=== PATIENT | female | born 1990 | race Caucasian/White ===

== ENCOUNTER 2016-10-22 07:33 | Emergency (ER) | payer OTHER ==
[~2016-10-22] VITALS: Ht 175.3 cm; Wt 122.5 kg
[~2016-10-22 07:33] MED LIST: ACET500L36 PO; ACHD5005 PO; AGM875T PO; CEPH500C PO; CETI10TA17 PO; CIPR500T78 PO; CYCL10TA9 PO; FEXO180T84 PO; IBP800T PO; METR500T PO; MULT-974 PO; NAPR-243 PO; ONDAN4ODT PO; OXYC-12 PO; PHEN200T27 PO; POLY255P PO; SERT100T8 PO; SERT50TA PO; SRTR100T PO; TRAM50TA2 PO
[2016-10-22] MEDS ORDERED: PARO40TA3 PO (07:47)
[2016-10-22] MEDS ORDERED: ACET250T3 PO (07:47)
[2016-10-22] MEDS ORDERED: DEXAMETHASONE PF 10 MG/ML (DECADRON) VIAL IM STA (07:49)
[2016-10-22] MEDS ORDERED: diphenhydrAMINE 50 MG/ML INJ (BENADRYL) IM STA (07:49)
[2016-10-22] MEDS ORDERED: FAMOTIDINE 20 MG (PEPCID) TABLET PO STA (07:49)
--- NOTE | 2016-10-22 07:55 | ED General ---
General Chief Complaint: Allergic Reaction Stated Complaint: POSS ALLERGIC REACTION/RASH Source of Information: Patient Exam Limitations: No Limitations History of Present Illness Time Seen by Provider: 07:37 Initial Comments Here with report of possible allergic reaction. States that she started a new med, pantoprazole, 2 days ago and has had nothing else new except for she did eat an egg roll from somewhere last night. Symptoms started after eating the egg roll and that included nausea and vomiting with some persistent abdominal cramping. Redness and itching noted to hands, arms, scalp and to a lesser extent the torso. Denies breathing problems. Denies weakness. Timing/Duration: 12 Hours Severity: Moderate Associated Systoms: No Diaphoresis, No Fever/Chills, Nausea/Vomiting, Rash, No Shortness of Air Allergies and Home Medications Allergies Coded Allergies: pantoprazole (Verified Allergy, Unknown, 10/22/16) Home Medications Acetazolamide 250 Mg Tablet, 500 MG PO BID, (Reported) Fexofenadine HCl 180 Mg Tablet, 180 MG PO DAILY, (Reported) Paroxetine HCl 40 Mg Tablet, 40 MG PO, (Reported) Sertraline HCl 100 Mg Tablet, 200 MG PO DAILY, #180 (Reported) Constitutional: see HPI, No chills, No diaphoresis, No fever EENTM: no symptoms reported, No throat pain, No throat swelling Respiratory: no symptoms reported Cardiovascular: no symptoms reported Gastrointestinal: see HPI, nausea, vomiting Genitourinary: no symptoms reported Musculoskeletal: no symptoms reported Skin: see HPI, pruritus, rash Psychiatric/Neurological: No Symptoms Reported All Other Systems Reviewed Negative Unless Noted: Yes Past Cadivxy-Hcxvdj-Saojug Hx Patient Social History Alcohol Use: Denies Use Recreational Drug Use: No Smoking Status: Never a Smoker Recent Foreign Travel: No Contact w/Someone Who Travel: No Recent Hopitalizations: No Immunizations Up To Date Tetanus Booster (TDap): Less than 5yrs Surgeries HX Surgeries: Yes Surgeries: Gallbladder Respiratory Hx Respiratory Disorders: No Cardiovascular Hx Cardiac Disorders: No Neurological Hx Neurological Disorders: Yes Reproductive System Hx Reproductive Disorders: No Sexually Transmitted Disease: No HIV/AIDS: No Genitourinary Hx Genitourinary Disorders: No Gastrointestinal Hx Gastrointestinal Disorders: Yes Gastrointestinal Disorders: Gall Bladder Disease Musculoskeletal Hx Musculoskeletal Disorders: Yes Musculoskeletal Disorders: Fractures Endocrine Hx Endocrine Disorders: No HEENT HX ENT Disorders: No Cancer Hx Cancer: No Psychosocial Hx Psychiatric Problems: Yes Behavioral Health Disorders: Anxiety Integumentary HX Skin/Integumentary Disorder: No Reviewed Nursing Assessment Reviewed/Agree w Nursing PMH: Yes Family Medical History Significant Family History: No Pertinent Family Hx Physical Exam Vital Signs Vital Sign - Last 12Hours 10/22/16 07:49 Temp 99.1 Pulse 103 Resp 20 B/P (MAP) 141/90 Pulse Ox 96 Capillary Refill : General Appearance: No Apparent Distress, WD/WN HEENT: PERRL/EOMI, Pharynx Normal Neck: Non Tender, Supple Respiratory: Lungs Clear, Normal Breath Sounds Cardiovascular: Regular Rate, Rhythm, No Murmur Gastrointestinal: Non Tender, Soft Back: Normal Inspection, No CVA Tenderness, No Vertebral Tenderness Extremity: Non Tender, No Calf Tenderness Neurologic/Psychiatric: Alert, Oriented x3 Skin: Warm/Dry, Rash (erythema noted to hands and distal arms as well as upper neck and scalp. No significant rash noted on torso.) Progress/Results/Core Measures Results/Orders My Orders Orders - BARBIE LANGE MD Diphenhydramine Injection (Benadryl Inje (10/22/16 07:49) Dexamethasone Pf Injection (Decadron Pf (10/22/16 07:49) Famotidine Tablet (Pepcid Tablet) (10/22/16 07:49) Epinephrine 1 Mg Injection (Adrenalin I (10/22/16 08:26) Saline Lock/Iv-Start (10/22/16 08:26) Ns Iv 1000 Ml (Sodium Chloride 0.9%) (10/22/16 08:26) Epinephrine 1 Mg Injection (Adrenalin I (10/22/16 08:27) Medications Given in ED Current Medications Medications Dose Ordered Sig/Divya Route Start Time Stop Time Status Last Admin Dose Admin Sodium Chloride 1,000 ml @ 0 mls/hr Q0M ONCE IV 10/22/16 08:26 10/22/16 08:29 DC 10/22/16 08:44 0 MLS/HR Vital Signs/I&O Vital Sign - Last 12Hours 10/22/16 07:49 Temp 99.1 Pulse 103 Resp 20 B/P (MAP) 141/90 Pulse Ox 96 Progress Note : Progress Note Seen and evaluated. Benadryl 50 mg IM, Decadron 10 mg IM and Pepcid 20 mg by mouth ordered. We will try conservative approach initially. 0825: Patient noted to have increasing rash and itching so we will establish IV and give 1 L normal saline as well as give epinephrine 0.3 mg IM. Monitor patient. 1225: Symptoms have completely resolved and she is doing much better. Discharged home with return precautions. Patient verbalize understanding instructions and agreement with plan. Departure Impression Impression: Primary Impression: Drug-induced anaphylaxis Qualified Codes: T78.2XXA - Anaphylactic shock, unspecified, initial encounter Departure-Patient Inst. Decision time for Depature: 12:27 Referrals: NO,LOCAL PHYSICIAN (PCP/Family) Primary Care Physician Patient Instructions: Anaphylaxis (DC) Add. Discharge Instructions: All discharge instructions reviewed with patient and/or family. Voiced understanding. Take Pepcid or the generic famotidine 20 mg twice daily for the next 3 days and then daily thereafter as needed. You may take Benadryl 25-50 mg every 6 hours as needed for itching. Follow-up with your Dr. in a few days for recheck. Do not take the pantoprazole anymore as this is the likely cause of your allergic reaction. Return for worse pain, fever, vomiting, weakness, breathing problems or other concerns as needed. BARBIE LANGE MD Oct 22, 2016 07:55
[2016-10-22] MEDS ORDERED: NS IV 1000 ML 1,000 ML IV ONE (08:26)
[2016-10-22] MEDS ORDERED: EPINEPHrine INJECTION 1 MG/ML AMP IM STA (08:26)
[2016-10-22] MEDS ORDERED: EPINEPHrine INJECTION 1 MG/ML AMP ONE (08:27)
[2016-10-22 12:48] VITALS: BP 124/85
--- OUTSIDE RECORDS SUMMARY | 2016-11-22 20:51 | XMS REPORT ---
Author Author CHANTALE OCAMPO [facility] eClinicalWorks Address Unknown Phone Unavailable Care Team Providers Care Hvac Designer Name Role Phone CHANTALE OCAMPO CP Unavailable Allergies, Adverse Reactions, Alerts Substance Reaction Event Type N.K.D.A. Info Not Available Non Drug Allergy Problems Problem Type Condition Code Onset Dates Condition Status Assessment Acute serous otitis media of left ear, recurrence not specified H65.02 Active Medications Medication Code System Code Instructions Start Date End Date Status Dosage Amoxicillin [facility] [address]-31 500 MG Orally every 12 hrs Aug 30, 2015 Sep 06, 2015 1 tablet Zoloft [facility] [address]-21 100 MG Orally 2 times a day 1 tablet Procedures Procedure Coding System Code Date Office Visit, Est Pt., Level 3 CPT-4 74153 Aug 30, 2015 Vital Signs Date/Time: Aug 30, 2015 Temperature 98.4 F Weight 245.2 lbs Height 69 in BMI 36.21 Index Blood Pressure Diastolic 70 mmHg Blood Pressure Systolic 110 mmHg Cardiac Monitoring Heart Rate 80 bpm Results No Known Results Summary Purpose eClinicalWorks Submission
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
== END 2016-10-22 12:48 | disposition home or self-care (01) ==
LOC: EDUNIT# 07:33 → ER 07:35
DX: T88.6XXA Anaphylactic reaction due to adverse effect of correct drug or medicament properly administered, initial encounter (principal); T47.1X5A Adverse effect of other antacids and anti-gastric-secretion drugs, initial encounter; Y92.009 Unspecified place in unspecified non-institutional (private) residence as the place of occurrence of the external cause
CPT/HCPCS: 96372

== ENCOUNTER 2016-12-20 22:23 | Emergency (ER) | payer OTHER ==
[~2016-12-20] VITALS: Ht 175.3 cm; Wt 120.2 kg
[~2016-12-20 22:23] MED LIST changes: +ACET250T3 PO; +PARO40TA3 PO
[2016-12-21] MEDS ORDERED: KETOROLAC 30 MG/ML VIAL IVP STA (01:23)
[2016-12-21] MEDS ORDERED: NS IV 1000 ML 1,000 ML IV ONE (01:23)
[2016-12-21] MEDS ORDERED: CLINDAMYCIN INJECTION 900 MG in NS (IVPB) 50 ML IV ONE (01:30)
[2016-12-21 01:33] LABS: BASOPHILS % (AUTO) 0 % (0-10); EOSINOPHILS # (AUTO) 0.1 10^3/uL (0.0-0.3); EOSINOPHILS % (AUTO) 1 % (0-10); LYMPHOCYTES # (AUTO) 2.2 X 10^3 (1.0-4.0); LYMPHOCYTES % (AUTO) 15 % (12-44); MEAN CORPUSCULAR HEMOGLOBIN 29 PG (25-34); MEAN CORPUSCULAR HGB CONC 32 G/DL (32-36); MEAN CORPUSCULAR VOLUME 90 FL (80-99); MEAN PLATELET VOLUME 11.3 FL (7.4-10.4); MONOCYTES # (AUTO) 0.8 X 10^3 (0.0-1.0); MONOCYTES % (AUTO) 6 % (0-12); NEUTROPHILS # (AUTO) 11.6 X 10^3 (1.8-7.8); NEUTROPHILS % (AUTO) 79 % (42-75); PLATELET COUNT 336 10^3/uL (130-400); RED BLOOD COUNT 4.85 10^6/uL (4.35-5.85); RED CELL DISTRIBUTION WIDTH 13.8 % (10.0-14.5); WHITE BLOOD COUNT 14.8 10^3/uL (4.3-11.0)
[2016-12-21 01:49] LABS: ALANINE AMINOTRANSFERASE 23 U/L (0-55); ALBUMIN 4.3 G/DL (3.2-4.5); ANION GAP 12 MMOL/L (5-14); ASPARTATE AMINO TRANSFERASE 16 U/L (5-34); BILIRUBIN,TOTAL 0.3 MG/DL (0.1-1.0); BLOOD UREA NITROGEN 9 MG/DL (7-18); BUN/CREATININE RATIO 12; CALCIUM 9.6 MG/DL (8.5-10.1); CARBON DIOXIDE 20 MMOL/L (21-32); CHLORIDE 110 MMOL/L (98-107); CREATININE SERUM 0.76 MG/DL (0.60-1.30); GFR ESTIMATED > 60; GLUCOSE 111 MG/DL (70-105); POTASSIUM 3.7 MMOL/L (3.6-5.0); SODIUM 142 MMOL/L (135-145); TOTAL PROTEIN 7.7 G/DL (6.4-8.2)
--- NOTE | 2016-12-21 02:23 | ED Upper Extremity ---
General Chief Complaint: Upper Extremity Stated Complaint: POSS SPIDER BITE Nursing Triage Note: Pt. has what she believes to be a spider bite to her left forarm. Nursing Sepsis Screen: No Definite Risk Allergies and Home Medications Allergies Coded Allergies: pantoprazole (Verified Allergy, Unknown, 10/22/16) Home Medications Acetazolamide 250 Mg Tablet, 500 MG PO BID, (Reported) Fexofenadine HCl 180 Mg Tablet, 180 MG PO DAILY, (Reported) Paroxetine HCl 40 Mg Tablet, 40 MG PO, (Reported) Sertraline HCl 100 Mg Tablet, 200 MG PO DAILY, #180 (Reported) Past Ztpwqhx-Aepdri-Mnhvem Hx Patient Social History Alcohol Use: Denies Use Recreational Drug Use: No Smoking Status: Never a Smoker Recent Foreign Travel: No Contact w/Someone Who Travel: No Recent Infectious Disease Expo: No Recent Hopitalizations: No Immunizations Up To Date Tetanus Booster (TDap): Less than 5yrs Surgeries HX Surgeries: Yes Surgeries: Gallbladder Respiratory Hx Respiratory Disorders: No Cardiovascular Hx Cardiac Disorders: No Neurological Hx Neurological Disorders: Yes Reproductive System Hx Reproductive Disorders: No Sexually Transmitted Disease: No HIV/AIDS: No Genitourinary Hx Genitourinary Disorders: No Gastrointestinal Hx Gastrointestinal Disorders: Yes Gastrointestinal Disorders: Gall Bladder Disease Musculoskeletal Hx Musculoskeletal Disorders: Yes Musculoskeletal Disorders: Fractures Endocrine Hx Endocrine Disorders: No HEENT HX ENT Disorders: No Cancer Hx Cancer: No Psychosocial Hx Psychiatric Problems: Yes Behavioral Health Disorders: Anxiety Integumentary HX Skin/Integumentary Disorder: No Family Medical History Significant Family History: No Pertinent Family Hx Physical Exam Vital Signs Vital Sign - Last 12Hours 12/20/16 22:25 Temp 97.9 Pulse 85 Resp 14 B/P (MAP) 148/76 Pulse Ox 98 O2 Delivery Room Air Capillary Refill : Less Than 3 Seconds Progress/Results/Core Measures Results/Orders Lab Results Laboratory Tests Test 12/21/16 00:30 Range/Units White Blood Count 14.8 H 4.3-11.0 10^3/uL Red Blood Count 4.85 4.35-5.85 10^6/uL Hemoglobin 13.8 11.5-16.0 G/DL Hematocrit 44 35-52 % Mean Corpuscular Volume 90 80-99 FL Mean Corpuscular Hemoglobin 29 25-34 PG Mean Corpuscular Hemoglobin Concent 32 32-36 G/DL Red Cell Distribution Width 13.8 10.0-14.5 % Platelet Count 336 130-400 10^3/uL Mean Platelet Volume 11.3 H 7.4-10.4 FL Neutrophils (%) (Auto) 79 H 42-75 % Lymphocytes (%) (Auto) 15 12-44 % Monocytes (%) (Auto) 6 0-12 % Eosinophils (%) (Auto) 1 0-10 % Basophils (%) (Auto) 0 0-10 % Neutrophils # (Auto) 11.6 H 1.8-7.8 X 10^3 Lymphocytes # (Auto) 2.2 1.0-4.0 X 10^3 Monocytes # (Auto) 0.8 0.0-1.0 X 10^3 Eosinophils # (Auto) 0.1 0.0-0.3 10^3/uL Basophils # (Auto) 0.0 0.0-0.1 10^3/uL Sodium Level 142 135-145 MMOL/L Potassium Level 3.7 3.6-5.0 MMOL/L Chloride Level 110 H 98-107 MMOL/L Carbon Dioxide Level 20 L 21-32 MMOL/L Anion Gap 12 5-14 MMOL/L Blood Urea Nitrogen 9 7-18 MG/DL Creatinine 0.76 0.60-1.30 MG/DL Estimat Glomerular Filtration Rate > 60 BUN/Creatinine Ratio 12 Glucose Level 111 H 70-105 MG/DL Calcium Level 9.6 8.5-10.1 MG/DL Total Bilirubin 0.3 0.1-1.0 MG/DL Aspartate Amino Transf (AST/SGOT) 16 5-34 U/L Alanine Aminotransferase (ALT/SGPT) 23 0-55 U/L Alkaline Phosphatase 67 40-136 U/L Total Protein 7.7 6.4-8.2 G/DL Albumin 4.3 3.2-4.5 G/DL My Orders Orders - TRANG CASTELAN Cbc With Automated Diff (12/21/16 01:23) Comprehensive Metabolic Panel (12/21/16 01:23) Ketorolac Injection (Toradol Injection) (12/21/16 01:23) Ns Iv 1000 Ml (Sodium Chloride 0.9%) (12/21/16 01:23) Clindamycin Injection (Cleocin Injection (12/21/16 01:30) Medications Given in ED Current Medications Medications Dose Ordered Sig/Divya Route Start Time Stop Time Status Last Admin Dose Admin Clindamycin Phosphate 900 mg/ Sodium Chloride 56 ml @ 100 mls/hr ONCE ONCE IV 12/21/16 01:30 12/21/16 02:03 DC 12/21/16 01:32 100 MLS/HR Sodium Chloride 1,000 ml @ 0 mls/hr Q0M ONCE IV 12/21/16 01:23 12/21/16 01:26 DC 12/21/16 01:31 0 MLS/HR Vital Signs/I&O Vital Sign - Last 12Hours 12/20/16 22:25 Temp 97.9 Pulse 85 Resp 14 B/P (MAP) 148/76 Pulse Ox 98 O2 Delivery Room Air Blood Pressure Mean: 100 Departure Impression Impression: Primary Impression: Cellulitis of forearm, left Disposition: HOME, SELF-CARE Condition: Improved Departure-Patient Inst. Decision time for Depature: 02:16 Referrals: NO,LOCAL PHYSICIAN (PCP/Family) Primary Care Physician Patient Instructions: Cellulitis (Skin Infection), Adult (DC) Add. Discharge Instructions: All discharge instructions reviewed with patient and/or family. Voiced understanding. Medications as directed. Tylenol over the counter as directed for pain. Motrin 800 mg by mouth every 8 hours as needed for pain. Ice packs or heating pads as needed for 20 minute intervals. Elevate the arm on pillows. Shower with antibacterial soap. Follow-up with your family practitioner for recheck. Return to the emergency department for worsened pain, redness, fever, drainage, or any other concerns. Work/School Note: [employer] TRANG CASTELAN Dec 21, 2016 02:23
[2016-12-21] MEDS ORDERED: HYDR-3812 PO (02:29)
[2016-12-21] MEDS ORDERED: CLIN300C11 PO (02:29)
[2016-12-21 02:48] VITALS: BP 103/67
== END 2016-12-21 02:48 | disposition home or self-care (01) ==
LOC: EDUNIT# 22:23 → ER 22:26
DX: L03.114 Cellulitis of left upper limb (principal)
CPT/HCPCS: 36415; 80053; 85025

== ENCOUNTER 2017-01-21 21:27 | Emergency (ER) | payer OTHER ==
[~2017-01-21] VITALS: Ht 175.3 cm; Wt 119.3 kg
[~2017-01-21 21:27] MED LIST changes: +CLIN300C11 PO; +HYDR-3812 PO
[2017-01-21] MEDS ORDERED: RANI150T15 PO (21:54)
[2017-01-21] MEDS ORDERED: TRIM/SULFAMETH 160/800 (SEPTRA DS) TAB PO ONE (22:30)
[2017-01-21] MEDS ORDERED: SULF1TAB35 PO (22:32)
--- NOTE | 2017-01-21 22:32 | ED Integumentary General ---
General Chief Complaint: Bite-Animal/Human/Insect Stated Complaint: SPIDER BITE ON FACE Nursing Triage Note: to ED with reports of possible insect bite to left cheek. Patient reports that she first noticed it this morning. Denies any other s/s. History of Present Illness Time seen by provider: 22:10 Initial Comments Evaluation for possible insect bite or abscess to the left cheek. Patient states she has had MRSA in the past Timing/Duration: this morning Severity: mild Location: face Possible Cause: no cause identified, insect bite (possible, the patient does report that she has seen spiders in her home.) Associated Symptoms: denies symptoms Allergies and Home Medications Allergies Coded Allergies: pantoprazole (Verified Allergy, Unknown, 10/22/16) Home Medications Acetazolamide 250 Mg Tablet, 500 MG PO BID, (Reported) Paroxetine HCl 40 Mg Tablet, 40 MG PO, (Reported) Ranitidine HCl 150 Mg Tablet, 150 MG PO BID, (Reported) Sulfamethoxazole/Trimethoprim 1 Each Tablet, 1 EACH PO Q12H, #14 Ref 0 Prescribed by: GINI LOZANO on 01/21/172231 Constitutional: no symptoms reported, see HPI EENTM: no symptoms reported, see HPI Respiratory: no symptoms reported, see HPI Cardiovascular: no symptoms reported, see HPI Gastrointestinal: no symptoms reported, see HPI Genitourinary: no symptoms reported, see HPI Musculoskeletal: no symptoms reported, see HPI Skin: see HPI, other (small abscess to left cheek) Psychiatric/Neurological: No Symptoms Reported, See HPI Endocrine: No Symptoms Reported, See HPI Hematologic/Lymphatic: No Symptoms Reported, See HPI All Other Systems Reviewed Negative Unless Noted: Yes Past Bbcjybz-Udvmfo-Swsxyx Hx Patient Social History Alcohol Use: Denies Use Recreational Drug Use: No Smoking Status: Never a Smoker 2nd Hand Smoke Exposure: No Recent Foreign Travel: No Contact w/Someone Who Travel: No Recent Infectious Disease Expo: No Recent Hopitalizations: No Immunizations Up To Date Tetanus Booster (TDap): Less than 5yrs Seasonal Allergies Seasonal Allergies: Yes Surgeries HX Surgeries: Yes Surgeries: Gallbladder Respiratory Hx Respiratory Disorders: No Cardiovascular Hx Cardiac Disorders: No Neurological Hx Neurological Disorders: Yes Reproductive System Hx Reproductive Disorders: No Sexually Transmitted Disease: No HIV/AIDS: No Genitourinary Hx Genitourinary Disorders: No Gastrointestinal Hx Gastrointestinal Disorders: Yes Gastrointestinal Disorders: Gall Bladder Disease Musculoskeletal Hx Musculoskeletal Disorders: Yes Musculoskeletal Disorders: Fractures Endocrine Hx Endocrine Disorders: No HEENT HX ENT Disorders: No Cancer Hx Cancer: No Psychosocial Hx Psychiatric Problems: Yes Behavioral Health Disorders: Anxiety Integumentary HX Skin/Integumentary Disorder: No Reviewed Nursing Assessment Reviewed/Agree w Nursing PMH: Yes Family Medical History Significant Family History: No Pertinent Family Hx Physical Exam Vital Signs Vital Sign - Last 12Hours 01/21/17 21:49 Temp 98.5 Pulse 84 Resp 16 B/P (MAP) 122/52 Pulse Ox 98 O2 Delivery Room Air Capillary Refill : Less Than 3 Seconds General Appearance: WD/WN, no apparent distress Neck: non-tender, full range of motion, supple, normal inspection, No lymphadenopathy (R), No lymphadenopathy (L) Cardiovascular: normal peripheral pulses, regular rate, rhythm Respiratory: chest non-tender, lungs clear Gastrointestinal: normal bowel sounds, non tender, soft Neurologic/Psychiatric: no motor/sensory deficits, alert, normal mood/affect, oriented x 3 Skin: normal color, warm/dry, other (small indurated area to left cheek trace erythema, moderate tenderness, no warmth. No discharge or fluctuance. ) Skin Problem Character: abscess Lymphatic: no adenopathy Progress/Results/Core Measures Results/Orders My Orders Orders - GINI LOZANO Sulfamethoxazole/Trimet Ds Tab (Bactrim (01/21/17 22:30) Medications Given in ED Current Medications Medications Dose Ordered Sig/Divya Route Start Time Stop Time Status Last Admin Dose Admin Trimethoprim/ Sulfamethoxazole 1 ea ONCE ONCE PO 01/21/17 22:30 01/21/17 22:31 DC 01/21/17 22:37 1 EA Vital Signs/I&O Vital Sign - Last 12Hours 01/21/17 01/21/17 21:49 22:37 Temp 98.5 98.5 Pulse 84 81 Resp 16 16 B/P (MAP) 122/52 Pulse Ox 98 100 O2 Delivery Room Air Room Air Blood Pressure Mean: 75 Departure Impression Impression: Primary Impression: Insect bite Qualified Codes: W57.XXXA - Bitten or stung by nonvenomous insect and other nonvenomous arthropods, initial encounter Additional Impression: Abscess Disposition: 01 HOME, SELF-CARE Condition: Stable Departure-Patient Inst. Referrals: [facility] (PCP/Family) Primary Care Physician Patient Instructions: Insect Bites and Stings (DC) Add. Discharge Instructions: Ice to left cheek 20 minutes every 2 hours. Take antibiotic as prescribed. Clean site with peroxide 3-4 times a day. Return to emergency dept. for fevers, increased pain, or new concerns. All discharge instructions reviewed with patient and/or family. Voiced understanding. Scripts Sulfamethoxazole/Trimethoprim (Bactrim Ds Tablet) 1 Each Tablet 1 EACH PO Q12H, #14 TAB 0 Refills Prov: GINI LOZANO 01/21/17 GINI LOZANO Jan 21, 2017 22:32
[2017-01-21 22:37] VITALS: BP 126/58
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
== END 2017-01-21 22:37 | disposition home or self-care (01) ==
LOC: EDUNIT# 21:27 → ER 21:29
DX: S00.86XA Insect bite (nonvenomous) of other part of head, initial encounter (principal); L02.01 Cutaneous abscess of face; F41.9 Anxiety disorder, unspecified; Z86.14 Personal history of Methicillin resistant Staphylococcus aureus infection; W57.XXXA Bitten or stung by nonvenomous insect and other nonvenomous arthropods, initial encounter
CPT/HCPCS: 99283

== ENCOUNTER 2017-04-05 11:16 | Emergency (ER) | payer OTHER ==
[~2017-04-05] VITALS: Ht 175.3 cm; Wt 119.3 kg
[~2017-04-05 11:16] MED LIST changes: +RANI150T15 PO; +SULF1TAB35 PO
[2017-04-05] MEDS ORDERED: FLUV100T3 PO (11:48)
--- NOTE | 2017-04-05 12:21 | ED GU-Female ---
General Chief Complaint: -Female Stated Complaint: LOWER BACK PAIN Nursing Triage Note: PT STATES LOW RT BACK PAIN WITH FREQUENT URINATION FOR ABOUT 3 DAYS. PT ALSO STATES CHILLS AND SWEATS OFF AND ON. Nursing Sepsis Screen: No Definite Risk Source: patient Exam Limitations: no limitations History of Present Illness Time seen by provider: 12:20 Initial Comments To ER with reports of right-sided low back pain for about 3 days. She has associated nausea. She denies any dysuria or urinary frequency. She states the pain is worsened by certain movements and improved by certain movements. Timing/Duration: other Severity/Quality: moderate Radiation: none Activities at Onset: none Prior Genitourinary Problems: none Associated Symptoms: dysuria, lower back pain, nausea/vomiting Allergies and Home Medications Allergies Coded Allergies: pantoprazole (Verified Allergy, Unknown, 10/22/16) Home Medications Acetazolamide 250 Mg Tablet, 500 MG PO BID, (Reported) Cyclobenzaprine HCl 5 Mg Tablet, 5 MG PO TID PRN for PAIN-MODERATE TO SEVERE, # 20 Prescribed by: ARIC ZHANG on 04/05/17 1349 Fluvoxamine Maleate 100 Mg Tablet, 100 MG PO DAILY, (Reported) Naproxen 500 Mg Tablet, 500 MG PO BID PRN for PAIN-MODERATE TO SEVERE, #30 Prescribed by: ARIC ZHANG on 04/05/17 1349 Paroxetine HCl 40 Mg Tablet, 40 MG PO, (Reported) Ranitidine HCl 150 Mg Tablet, 150 MG PO BID, (Reported) Constitutional: see HPI EENTM: see HPI Respiratory: no symptoms reported Cardiovascular: no symptoms reported Genitourinary: see HPI Musculoskeletal: no symptoms reported Skin: no symptoms reported Psychiatric/Neurological: No Symptoms Reported Endocrine: No Symptoms Reported Past Whurreg-Aqdjtg-Obpuqi Hx Patient Social History Alcohol Use: Denies Use Recreational Drug Use: No Smoking Status: Never a Smoker 2nd Hand Smoke Exposure: No Recent Foreign Travel: No Contact w/Someone Who Travel: No Recent Infectious Disease Expo: No Recent Hopitalizations: No Immunizations Up To Date Tetanus Booster (TDap): Less than 5yrs Seasonal Allergies Seasonal Allergies: Yes Surgeries History of Surgeries: Yes (DENTAL) Surgeries: Gallbladder Respiratory History of Respiratory Disorde: No Cardiovascular History of Cardiac Disorders: No 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) Reproductive System : No Last Menstrual Period: Apr 05, 2017 Hx Reproductive Disorders: No Sexually Transmitted Disease: No HIV/AIDS: No Genitourinary History of Genitourinary Disor: No (CURRENT CONDITION 04/05/17) Gastrointestinal History of Gastrointestinal Di: Yes Gastrointestinal Disorders: Gall Bladder Disease Musculoskeletal History of Musculoskeletal Dis: Yes Musculoskeletal Disorders: Fractures Endocrine History of Endocrine Disorders: No Cancer History of Cancer: No Psychosocial History of Psychiatric Problem: Yes (OCD) Behavioral Health Disorders: Anxiety Integumentary History of Skin or Integumenta: No Blood Transfusions History of Blood Disorders: No Family Medical History Significant Family History: No Pertinent Family Hx Physical Exam Vital Signs Vital Sign - Last 12Hours 04/05/17 11:40 Temp 96.5 Pulse 88 Resp 22 B/P (MAP) 124/85 Pulse Ox 98 O2 Delivery Room Air Capillary Refill : Less Than 3 Seconds General Appearance: WD/WN, no apparent distress HEENT: PERRL/EOMI, normal ENT inspection Neck: non-tender, full range of motion Cardiovascular: regular rate, rhythm, no murmur Respiratory: normal breath sounds, no respiratory distress, no accessory muscle use Gastrointestinal: normal bowel sounds, non tender, soft Extremities: normal range of motion, non-tender Neurologic/Psychiatric: alert, normal mood/affect, oriented x 3 Skin: normal color, warm/dry Progress/Results/Core Measures Results/Orders Lab Results Laboratory Tests Test 04/05/17 12:20 04/05/17 12:30 Range/Units Urine Color YELLOW Urine Clarity CLEAR Urine pH 5 5-9 Urine Specific [place] 1.020 1.016-1.022 Urine Protein 1+ H NEGATIVE Urine Glucose (UA) NEGATIVE NEGATIVE Urine Ketones NEGATIVE NEGATIVE Urine Nitrite NEGATIVE NEGATIVE Urine Bilirubin NEGATIVE NEGATIVE Urine Urobilinogen NORMAL NORMAL MG/DL Urine Leukocyte Esterase NEGATIVE NEGATIVE Urine RBC (Auto) 4+ H NEGATIVE Urine RBC 2-5 H /HPF Urine WBC NONE /HPF Urine Squamous Epithelial Cells 2-5 /HPF Urine Crystals NONE /LPF Urine Bacteria TRACE /HPF Urine Casts NONE /LPF Urine Mucus NEGATIVE /LPF Urine Culture Indicated NO White Blood Count 9.6 4.3-11.0 10^3/uL Red Blood Count 4.57 4.35-5.85 10^6/uL Hemoglobin 13.4 11.5-16.0 G/DL Hematocrit 41 35-52 % Mean Corpuscular Volume 89 80-99 FL Mean Corpuscular Hemoglobin 29 25-34 PG Mean Corpuscular Hemoglobin Concent 33 32-36 G/DL Red Cell Distribution Width 13.7 10.0-14.5 % Platelet Count 309 130-400 10^3/uL Mean Platelet Volume 10.3 7.4-10.4 FL Neutrophils (%) (Auto) 67 42-75 % Lymphocytes (%) (Auto) 26 12-44 % Monocytes (%) (Auto) 5 0-12 % Eosinophils (%) (Auto) 2 0-10 % Basophils (%) (Auto) 0 0-10 % Neutrophils # (Auto) 6.4 1.8-7.8 X 10^3 Lymphocytes # (Auto) 2.5 1.0-4.0 X 10^3 Monocytes # (Auto) 0.5 0.0-1.0 X 10^3 Eosinophils # (Auto) 0.2 0.0-0.3 10^3/uL Basophils # (Auto) 0.0 0.0-0.1 10^3/uL My Orders Orders - ARIC ZHANG APRN Ua Culture If Indicated (04/05/17 11:40) Urine Bedside (04/05/17 11:40) Ondansetron Oral Dissolve Tab (Zofran (04/05/17 12:30) Cbc With Automated Diff (04/05/17 12:25) Saline Lock/Iv-Start (04/05/17 12:26) Ketorolac Injection (Toradol Injection) (04/05/17 12:30) Ct Abd/Pelvis Wo(Kidney Stone) (04/05/17 13:09) Medications Given in ED Current Medications Medications Dose Ordered Sig/Divya Route Start Time Stop Time Status Last Admin Dose Admin Ketorolac Tromethamine 30 mg ONCE ONCE IVP 04/05/17 12:30 04/05/17 12:31 DC 04/05/17 12:38 30 MG Ondansetron HCl 4 mg ONCE ONCE PO 04/05/17 12:30 04/05/17 12:31 DC 04/05/17 12:28 4 MG Vital Signs/I&O Vital Sign - Last 12Hours 04/05/17 11:40 Temp 96.5 Pulse 88 Resp 22 B/P (MAP) 124/85 Pulse Ox 98 O2 Delivery Room Air Blood Pressure Mean: 98 Progress Note : Progress Note NAME: CARLIN QUINTERO [facility] REC#: [id number] PT STATUS: REG ER : 1990 PHYSICIAN: ARIC ZHANG APRN ADMIT DATE: 04/05/17/ER Draft Date of Exam:04/05/17 CT ABD/PELVIS WO(KIDNEY STONE) PROCEDURE: CT urinary tract, rule out kidney stone. TECHNIQUE: Multiple contiguous axial images were obtained through the abdomen and pelvis without the use of intravenous contrast. INDICATION: Severe right-sided back pain x4 days. COMPARISON: 03/27/2014. FINDINGS: Included views of the lung bases are clear. CT abdomen: Pyramids of the left kidney are somewhat hyperdense, but there is otherwise no evidence of nephrolithiasis on either side. No ureteral calculi identified. Additionally, there is no hydroureteronephrosis or other evidence of obstruction. There is small hypodensity within the superior pole of left kidney. This is incompletely characterized on this exam, but is suspicious for hypodense cysts. The liver, spleen, pancreas, and adrenal glands have an unremarkable noncontrast CT appearance. Small bowel loops are nondistended. Normal appendix is identified. There is no loculated fluid collection, free fluid, nor free air within the abdomen. No abnormal mesenteric or retroperitoneal adenopathy is seen. Bony structures show no acute abnormalities. CT pelvis: Urinary bladder is unopacified. No calculi are seen within urinary bladder. There is no loculated fluid collection, free fluid, nor free air within the pelvis. No abnormal lymph nodes are seen. Filling defect is noted within the vagina likely on the basis of indwelling tampon. Bony structures show no acute abnormalities. IMPRESSION: 1. No acute abnormalities within the abdomen or pelvis. Left renal pelvises are somewhat hyperdense, but this is nonspecific. There is otherwise no evidence of renal or renal collecting system calculi or obstruction on this noncontrast exam. 2. Other nonemergent findings as described above. Dictated on workstation # [id number] Dict: 04/05/17 1330 Trans: 04/05/17 1344 [facility] [id number] Interpreted by: LAURI HOLLEY MD Electronically signed by: Departure Impression Impression: Primary Impression: Musculoskeletal back pain Disposition: HOME, SELF-CARE Condition: Stable Departure-Patient Inst. Decision time for Depature: 13:48 Referrals: [facility] (PCP/Family) Primary Care Physician Patient Instructions: Low Back Pain in Adults Add. Discharge Instructions: 1. Medication as directed 2. Return to ER for any concerns 3. See your doctor later this week for recheck if pain persists All discharge instructions reviewed with patient and/or family. Voiced understanding. Scripts Naproxen (Naproxen) 500 Mg Tablet 500 MG PO BID Y for PAIN-MODERATE, #30 TAB Prov: ARIC ZHANG APRN 04/05/17 Cyclobenzaprine HCl (Cyclobenzaprine HCl) 5 Mg Tablet 5 MG PO TID Y for PAIN-MODERATE, #21 TAB Prov: ARIC ZHANG APRN 04/05/17 Cyclobenzaprine HCl (Cyclobenzaprine HCl) 5 Mg Tablet 5 MG PO TID Y for PAIN-MODERATE TO SEVERE, #20 TAB Prov: ARIC ZHANG APRN 04/05/17 Naproxen (Naprosyn) 500 Mg Tablet 500 MG PO BID Y for PAIN-MODERATE TO SEVERE, #30 TAB Prov: ARIC ZHANG APRN 04/05/17 Work/School Note: Work Release Form Date Seen in the Emergency Department: Apr 05, 2017 Return to Work: Apr 07, 2017 ARIC ZHANG APRN Apr 05, 2017 12:21
[2017-04-05] MEDS ORDERED: ONDANSETRON 4 MG (ZOFRAN) ORAL DISSOLVE TAB PO ONE (12:30)
[2017-04-05] MEDS ORDERED: KETOROLAC 30 MG/ML VIAL IVP ONE (12:30)
[2017-04-05 12:41] LABS: BASOPHILS % (AUTO) 0 % (0-10); EOSINOPHILS # (AUTO) 0.2 10^3/uL (0.0-0.3); EOSINOPHILS % (AUTO) 2 % (0-10); LYMPHOCYTES # (AUTO) 2.5 X 10^3 (1.0-4.0); LYMPHOCYTES % (AUTO) 26 % (12-44); MEAN CORPUSCULAR HEMOGLOBIN 29 PG (25-34); MEAN CORPUSCULAR HGB CONC 33 G/DL (32-36); MEAN CORPUSCULAR VOLUME 89 FL (80-99); MEAN PLATELET VOLUME 10.3 FL (7.4-10.4); MONOCYTES # (AUTO) 0.5 X 10^3 (0.0-1.0); MONOCYTES % (AUTO) 5 % (0-12); NEUTROPHILS # (AUTO) 6.4 X 10^3 (1.8-7.8); NEUTROPHILS % (AUTO) 67 % (42-75); PLATELET COUNT 309 10^3/uL (130-400); RED BLOOD COUNT 4.57 10^6/uL (4.35-5.85); RED CELL DISTRIBUTION WIDTH 13.7 % (10.0-14.5); WHITE BLOOD COUNT 9.6 10^3/uL (4.3-11.0)
[2017-04-05 12:56] LABS: BILIRUBIN,URINE NEGATIVE (NEGATIVE); KETONES,URINE NEGATIVE (NEGATIVE); LEUKOCYTE ESTERASE ,URINE NEGATIVE (NEGATIVE); NITRITE,URINE NEGATIVE (NEGATIVE); PH,URINE 5 (5-9); PROTEIN,URINE 1+ (NEGATIVE); UROBILINOGEN,URINE NORMAL (NORMAL)
--- NOTE | 2017-04-05 13:44 | Diagnostic Imaging Report ---
PROCEDURE: CT urinary tract, rule out kidney stone. TECHNIQUE: Multiple contiguous axial images were obtained through the abdomen and pelvis without the use of intravenous contrast. INDICATION: Severe right-sided back pain x4 days. COMPARISON: 03/27/2014. FINDINGS: Included views of the lung bases are clear. CT abdomen: Pyramids of the left kidney are somewhat hyperdense, but there is otherwise no evidence of nephrolithiasis on either side. No ureteral calculi identified. Additionally, there is no hydroureteronephrosis or other evidence of obstruction. There is small hypodensity within the superior pole of left kidney. This is incompletely characterized on this exam, but is suspicious for hypodense cysts. The liver, spleen, pancreas, and adrenal glands have an unremarkable noncontrast CT appearance. Small bowel loops are nondistended. Normal appendix is identified. There is no loculated fluid collection, free fluid, nor free air within the abdomen. No abnormal mesenteric or retroperitoneal adenopathy is seen. Bony structures show no acute abnormalities. CT pelvis: Urinary bladder is unopacified. No calculi are seen within urinary bladder. There is no loculated fluid collection, free fluid, nor free air within the pelvis. No abnormal lymph nodes are seen. Filling defect is noted within the vagina likely on the basis of indwelling tampon. Bony structures show no acute abnormalities. IMPRESSION: 1. No acute abnormalities within the abdomen or pelvis. Left renal pelvises are somewhat hyperdense, but this is nonspecific. There is otherwise no evidence of renal or renal collecting system calculi or obstruction on this noncontrast exam. 2. Other nonemergent findings as described above. Dictated by: Dictated on workstation # [id number]
[2017-04-05] MEDS ORDERED: CYCL5TAB PO ×2 (13:49→13:55)
[2017-04-05] MEDS ORDERED: NAPR500T PO (13:49)
[2017-04-05 13:55] VITALS: BP 124/85
[2017-04-05] MEDS ORDERED: NAPR500T3 PO (13:55)
== END 2017-04-05 13:55 | disposition home or self-care (01) ==
LOC: EDUNIT# 11:16 → ER 11:18
DX: M54.5 Low back pain (principal); F41.9 Anxiety disorder, unspecified; F42.9 Obsessive-compulsive disorder, unspecified; Z87.19 Personal history of other diseases of the digestive system
CPT/HCPCS: 36415; 74176; 81000; 84703; 85025

== ENCOUNTER 2021-04-30 19:08 | Emergency (ER) | payer OTHER ==
[~2021-04-30] VITALS: Ht 175 cm; Wt 127.0 kg
[~2021-04-30 19:08] MED LIST changes: -CLIN300C11 PO; +CLIN300C12 PO; +CYCL5TAB PO; +FLUV100T3 PO; -HYDR-3812 PO; +NAPR-1071 PO; +NAPR-915 PO; +RANI-613 PO; -RANI150T15 PO; +SERT-414 PO; -SULF1TAB35 PO; +SULF1TAB38 PO
[2021-04-30 19:41] LABS: BILIRUBIN,URINE NEGATIVE (NEGATIVE); CLARITY,URINE SL CLOUDY; COLOR,URINE YELLOW; GLUCOSE, URINE (UA) NEGATIVE (NEGATIVE); KETONES,URINE NEGATIVE (NEGATIVE); LEUKOCYTE ESTERASE ,URINE NEGATIVE (NEGATIVE); NITRITE,URINE NEGATIVE (NEGATIVE); PROTEIN,URINE NEGATIVE (NEGATIVE)
[2021-04-30 20:05] LABS: AMORPHOUS SEDIMENT,UR RARE AMOR URATES /LPF; AMPHETAMINE SCREEN, URINE NEGATIVE (NEGATIVE); BACTERIA,URINE NEGATIVE /HPF; BARBITURATE SCREEN URINE NEGATIVE (NEGATIVE); BENZODIAZEPINES SCREEN URINE NEGATIVE (NEGATIVE); CANNABINOID SCREEN, URINE NEGATIVE (NEGATIVE); COCAINE SCREEN URINE NEGATIVE (NEGATIVE); METHADONE STAT NEGATIVE (NEGATIVE); METHAMPHETAMINE SCREEN URINE S NEGATIVE (NEGATIVE); OPIATE SCREEN URINE NEGATIVE (NEGATIVE); OXYCODONE STAT NEGATIVE (NEGATIVE); TRICYCLIC ANTIDEPRESSANTS SCRE NEGATIVE (NEGATIVE)
[2021-04-30 20:06] LABS: PROPOXYPHENE STAT NEGATIVE (NEGATIVE)
--- NOTE | 2021-04-30 20:21 | ED Neck-Back Pain/Injury ---
General Chief Complaint: Back Problems Stated Complaint: NECK / BACK PAIN Nursing Triage Note: PT ARRIVES TO ER AMBULATORY WITH C/O LOW BACK PAIN, NECK STIFFNESS, AND TINGLY LEGS. 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 Source of Information: Patient History of Present Illness Date Seen by Provider: Apr 30, 2021 Time Seen by Provider: 19:20 Initial Comments PT ARRIVES VIA POV FROM HOME C/O MOSTLY LOWER BACK PAIN, BUT STATES HER WHOLE BACK HURTS PAIN IS MOSTLY OVER LEFT SI JOINT AREA, AND OCCASIONALLY RADIATES DOWN TO HER L EFT POSTERIOR THIGH ALSO C/O NECK PAIN NO RADIATION OF NECK PAIN/ NO ARM PAIN BUT THEN STATES SHE "JUST HURTS ALL OVER" THESE SYMPTOMS ONGOING SINCE FEBRUARY 16 HAD THERAPEUTIC LUMBAR PUNCTURE ON JANUARY 16 FOR PSEUDOTUMOR CEREBRI STATES THESE SYMPTOMS ACTUALLY STARTED THEN, BUT GOT BETTER AND THEN CAME BACK ON FEBRUARY 16 AND HAVE NOT GONE AWAY HAS NOT FOLLOWED UP WITH ANYONE FOR THIS PROBLEM STATES SHE HAS BEEN SEEN AT [facility] FOR URI / SINUS SYMPTOMS AND WAS ON AMOXIL AND AUGMENTIN--BUT HAS NOT BEEN SEEN FOR THIS PROBLEM NO FEVER NO PARESTHESIAS OR MOTOR DEFICITS NO VISION CHANGES NO LOSS OF BOWEL OR BLADDER FUNCTION HAS HAD A HEADACHE OFF AND ON,BUT SHE HAS OCCASIONAL HEADACHES STATES SHE OCCASIONALLY FEELS LIGHTHEADED WELL. PT STATES SHE IS JUST REALLY ANXIOUS ABOUT IT. HAS HISTORY OF ANXIETY AND OCD LMP ENDED 04/18/21. HAS IUD IN PLACE PT RECEIVED RAHEL/RAHEL COVID-19 VACCINE 10/2020 Other Comments PCP: [facility] Allergies and Home Medications Allergies Coded Allergies: pantoprazole (Verified Allergy, Unknown, 10/22/16) Patient Home Medication List Home Medication List Reviewed: Yes Acetazolamide (Acetazolamide) 250 Mg Tablet, 500 MG PO BID, (Reported) Entered as Reported by: ALYSA VILLAGOMEZ on 10/22/16 1711 Cyclobenzaprine HCl (Cyclobenzaprine HCl) 5 Mg Tablet, 5 MG PO TID PRN for PAIN- MODERATE TO SEVERE Prescribed by: ARIC ZHANG on 04/05/17 1349 Cyclobenzaprine HCl (Cyclobenzaprine HCl) 5 Mg Tablet, 5 MG PO TID PRN for PAIN- MODERATE Prescribed by: ARIC ZHANG on 04/05/17 1355 Fluvoxamine Maleate (Fluvoxamine Maleate) 100 Mg Tablet, 100 MG PO DAILY, (Reported) Entered as Reported by: KEVAN BOWENS on 04/05/17 1148 Methylprednisolone (Methylprednisolone Dose Pack) 4 Mg Tab.ds.pk, 4 MG PO UD Prescribed by: YAMEL HAN on 04/30/212131 Naproxen (Naprosyn) 500 Mg Tablet, 500 MG PO BID PRN for PAIN-MODERATE TO SEVERE Prescribed by: ARIC ZHANG on 04/05/17 1349 Naproxen (Naproxen) 500 Mg Tablet, 500 MG PO BID PRN for PAIN-MODERATE Prescribed by: ARIC ZHANG on 04/05/17 1355 Paroxetine HCl (Paroxetine HCl) 40 Mg Tablet, 40 MG PO, (Reported) Entered as Reported by: ALYSA VILLAGOMEZ on 10/22/16 0747 Ranitidine HCl (Zantac) 150 Mg Tablet, 150 MG PO BID, (Reported) Entered as Reported by: GOGO BOWENS on 01/21/172153 Tizanidine HCl (Zanaflex) 4 Mg Capsule, 4 MG PO TID Prescribed by: YAMEL HAN on 04/30/212131 Review of Systems Constitutional: see HPI; No chills, No diaphoresis; dizziness; No fever EENTM: no symptoms reported Respiratory: no symptoms reported Cardiovascular: no symptoms reported Gastrointestinal: no symptoms reported Genitourinary: no symptoms reported : No LMP: Apr 13, 2021 Control/STD Prophylaxis: IUD Musculoskeletal: see HPI, back pain, neck pain Skin: no symptoms reported; No rash Psychiatric/Neurological: See HPI, Headache; Denies Numbness, Denies Paresthesi a, Denies Seizure, Denies Tingling, Denies Tremors, Denies Weakness Past Vprscmr-Rhktzm-Cgrkim Hx Patient Social History Tobacco Use?: No Substance use?: No Alcohol Use?: No Pt feels they are or have been: No Immunizations Up To Date Tetanus Booster (TDap): Less than 5yrs Influenza Vaccine Up-to-Date: No; Not Current First/Initial COVID19 Vaccinat: OCTOBER 2020 COVID19 Vaccine Performance Analyst: [email or web address] Seasonal Allergies Seasonal Allergies: Yes Past Medical History Surgery/Hospitalization HX: CHOLECYSTECTOMY 03/2014 Surgeries: Yes (DENTAL) Gallbladder Respiratory: No Cardiac: No Neurological: Yes (PSEUDOTUMOR CEREBRI) Reproductive Disorders: 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 Sexually Transmitted Disease: No HIV/AIDS: No Genitourinary: No Gastrointestinal: Yes (S/P CHOLECYSTECTOMY) Gastroesophageal Reflux, Gall Bladder Disease Musculoskeletal: Yes Fractures Endocrine: Yes (OBESITY) HEENT: No Cancer: No Psychosocial: Yes (OCD) Anxiety Integumentary: Yes (MRSA) Blood Disorders: No Family Medical History No Pertinent Family Hx Physical Exam Vital Signs Vital Signs - First Documented 04/30/21 19:21 Temp 36.2 Pulse 111 Resp 18 B/P (MAP) 139/115 (123) Pulse Ox 96 O2 Delivery Room Air Capillary Refill : Less Than 3 Seconds Height, Weight, BMI Height: 5'9.00" Weight: 263lbs. oz. 119.865685ic; 41.00 BMI Method:Stated General Appearance: WD/WN, Anxious, Obese Neck: Full Range of Motion, Supple, Other (MILD DIFFUSE POSTERIOR NECK TENDERNESS, BUT HAS FULL ROM) Cardiovascular: Regular Rate, Rhythm, No Edema, No Murmur, Normal Peripheral Pulses Respiratory: Normal Breath Sounds, No Accessory Muscle Use Gastrointestinal: Non Tender, Soft Back: No CVA Tenderness, Other (STATES HER WHOLE BACK HURTS, BUT ONLY HAS MILD TENDERNESS ON PALPATION OF LOWER LUMBAR AREA, AND BILATERAL SI JOINTS--LEFT > RIGHT. HOLDING LEFT SI JOINT AREA. + STRAIGHT LEG RAISING AT LESS THAN 30 DEGREES ON LEFT. PT DOES HAVE FULL ROM, AND GOOD AND EQUAL STRENGTH IN ALL 4 EXTREMITIES. DTR'S +2/4 IN ALL EXTREMITIES. PT WALKS WITHOUT DIFFIUCULTY. ) Extremity: Normal Capillary Refill, Normal Inspection, Normal Range of Motion, Non Tender, No Calf Tenderness, No Pedal Edema Neurologic/Psychiatric: Alert, Oriented x3, No Motor/Sensory Deficits, artificial limb maker II- XII Norm as Tested, Other (ANXIOUS) Skin: Normal Color, Warm/Dry; No Ecchymosis, No Rash; Tattoos/Piercings Progress/Results/Core Measures Results/Orders Lab Results Laboratory Tests Test 04/30/21 19:30 04/30/21 20:24 Range/Units Urine Color YELLOW Urine Clarity SL CLOUDY Urine pH 6.0 5-[address] 1.020 1.016-1.022 Urine Protein NEGATIVE NEGATIVE Urine Glucose (UA) NEGATIVE NEGATIVE Urine Ketones NEGATIVE NEGATIVE Urine Nitrite NEGATIVE NEGATIVE Urine Bilirubin NEGATIVE NEGATIVE Urine Urobilinogen 0.2 < = 1.0 MG/DL Urine Leukocyte Esterase NEGATIVE NEGATIVE Urine RBC (Auto) NEGATIVE NEGATIVE Urine RBC NONE /HPF Urine WBC NONE /HPF Urine Crystals PRESENT H /LPF Urine Amorphous Sediment RARE RACHEL URATES H /LPF Urine Bacteria NEGATIVE /HPF Urine Casts NONE /LPF Urine Mucus SMALL H /LPF Urine Culture Indicated NO Urine Opiates Screen NEGATIVE NEGATIVE Urine Oxycodone Screen NEGATIVE NEGATIVE Urine Methadone Screen NEGATIVE NEGATIVE Urine Propoxyphene Screen NEGATIVE NEGATIVE Urine Barbiturates Screen NEGATIVE NEGATIVE Ur Tricyclic Antidepressants Screen NEGATIVE NEGATIVE Urine Phencyclidine Screen NEGATIVE NEGATIVE Urine Amphetamines Screen NEGATIVE NEGATIVE Urine Methamphetamines Screen NEGATIVE NEGATIVE Urine Benzodiazepines Screen NEGATIVE NEGATIVE Urine Cocaine Screen NEGATIVE NEGATIVE Urine Cannabinoids Screen NEGATIVE NEGATIVE White Blood Count 9.7 4.3-11.0 10^3/uL Red Blood Count 4.55 3.80-5.11 10^6/uL Hemoglobin 13.1 11.5-16.0 g/dL Hematocrit 41 35-52 % Mean Corpuscular Volume 89 80-99 fL Mean Corpuscular Hemoglobin 29 25-34 pg Mean Corpuscular Hemoglobin Concent 32 32-36 g/dL Red Cell Distribution Width 13.0 10.0-14.5 % Platelet Count 324 130-400 10^3/uL Mean Platelet Volume 10.5 9.0-12.2 fL Immature Granulocyte % (Auto) 0 % Neutrophils (%) (Auto) 81 H 42-75 % Lymphocytes (%) (Auto) 13 12-44 % Monocytes (%) (Auto) 6 0-12 % Eosinophils (%) (Auto) 1 0-10 % Basophils (%) (Auto) 0 0-10 % Neutrophils # (Auto) 7.8 1.8-7.8 10^3/uL Lymphocytes # (Auto) 1.2 1.0-4.0 10^3/uL Monocytes # (Auto) 0.5 0.0-1.0 10^3/uL Eosinophils # (Auto) 0.1 0.0-0.3 10^3/uL Basophils # (Auto) 0.0 0.0-0.1 10^3/uL Immature Granulocyte # (Auto) 0.0 0.0-0.1 10^3/uL Erythrocyte Sedimentation Rate 11 0-20 MM/HR Sodium Level 137 135-145 MMOL/L Potassium Level 3.7 3.6-5.0 MMOL/L Chloride Level 106 98-107 MMOL/L Carbon Dioxide Level 18 L 21-32 MMOL/L Anion Gap 13 5-14 MMOL/L Blood Urea Nitrogen 8 7-18 MG/DL Creatinine 0.70 0.60-1.30 MG/DL Estimat Glomerular Filtration Rate 98 BUN/Creatinine Ratio 11 Glucose Level 100 70-105 MG/DL Calcium Level 9.4 8.5-10.1 MG/DL Corrected Calcium 9.2 8.5-10.1 MG/DL Magnesium Level 1.6 1.6-2.4 MG/DL Total Bilirubin 0.3 0.1-1.0 MG/DL Aspartate Amino Transf (AST/SGOT) 29 5-34 U/L Alanine Aminotransferase (ALT/SGPT) 47 0-55 U/L Alkaline Phosphatase 63 40-136 U/L Myoglobin 47.4 10.0-92.0 NG/ML C-Reactive Protein High Sensitivity 3.01 H 0.00-0.50 MG/DL Total Protein 7.4 6.4-8.2 GM/DL Albumin 4.2 3.2-4.5 GM/DL TSH [place] Testing 0.92 0.35-4.94 UIU/ML Serum Test, Qualitative NEGATIVE NEGATIVE My Orders Orders - YAMEL HAN DO Ed Iv/Invasive Line Start (04/30/21 19:26) Cbc With Automated Diff (04/30/21 19:) Comprehensive Metabolic Panel (04/30/21 19:26) Hs C Reactive Protein (04/30/21 19:) Drug Screen Stat (Urine) (04/30/21 19:) Hcg,Qualitative Serum (04/30/21:) Magnesium (04/30/21 19:) Thyroid Analyzer (04/30/21 19:26) Ua Culture If Indicated (04/30/21:) Erythrocyte Sedimentation Rate (04/30/21:) Myoglobin Serum (04/30/21 19:) Ct Head/Cervical Spine Wo (04/30/21 20:16) Ct Thoracic/Lumbar Spine Wo (04/30/21 20:16) Ketorolac Injection (Toradol Injection) (04/30/21 20:30) Orphenadrine Inj (Ed Only) (Norflex Inje (04/30/21 20:30) Diphenhydramine Injection (Benadryl Inje (04/30/21 20:30) Rx-Cyclobenzaprine Tablet (Rx-Flexeril T (04/30/21 21:33) Medications Given in ED Current Medications Medications Dose Ordered Sig/Divya Route Start Time Stop Time Status Last Admin Dose Admin Ketorolac Tromethamine 30 mg ONCE ONCE IVP 04/30/21 20:30 04/30/21 20:31 DC 04/30/21 20:28 30 MG Orphenadrine Citrate 60 mg ONCE ONCE IVP 04/30/21 20:30 04/30/21 20:31 DC 04/30/21 21:38 60 MG Vital Signs/I&O 04/30/21 04/30/21 19:21 21:55 Temp 36.2 36.2 Pulse 111 105 Resp 18 18 B/P (MAP) 139/115 (123) 110/95 Pulse Ox 96 96 O2 Delivery Room Air Room Air Blood Pressure Mean: 123 Progress Progress Note : Progress Note GIVEN NORFLEX AND TORADOL NO DETERIORATION IN PT'S CONDITION DURING ER STAY Diagnostic Imaging Comments CT HEAD/CERVICAL SPINE--PER RADIOLOGIST REPORT AT 2106 FINDINGS: The ventricles and sulci are within normal limits. There is no hydrocephalus or cerebral edema. There is no midline shift or mass effect. There is no intracranial mass, hemorrhage or extra-axial fluid collection. The visualized paranasal sinuses and mastoid air cells are clear. No fractures are identified. CERVICAL SPINE: Alignment is normal. There is no fracture or traumatic subluxation. The prevertebral soft tissues are within normal limits. The odontoid is intact and the lateral masses are well aligned. There are no soft tissue abnormalities. IMPRESSION: 1. No acute intracranial process. 2. No focal abnormality in the cervical spine. CT THORACIC/LUMBAR SPINE--PER RADIOLOGIST REPORT AT 2106 FINDINGS: The alignment of the thoracic and lumbar spine is normal. There are mild degenerative changes in the thoracic spine. The vertebral body heights are well-maintained. There is no fracture or traumatic subluxation. There is no spondylolysis or spondylolisthesis. Visualized lungs are clear. Soft tissue structures are unremarkable. IMPRESSION: Mild thoracic spondylosis, however no acute fracture or traumatic subluxation in the thoracic or lumbar spine. Reviewed: Reviewed by Me Departure Impression Primary Impression: NECK AND BACK PAIN Disposition: HOME, SELF-CARE Condition: Stable Departure-Patient Inst. Decision time for Depature: 21:30 Referrals: [facility] (PCP/Family) Primary Care Physician Patient Instructions: Generalized Neck Pain (DC), Low Back Pain (DC) Add. Discharge Instructions: MOIST HEAT TO NECK AND BACK AT 20 MINUTE INTERVALS NO LIFTING OVER 10 LBS. NO TWISTING OR BENDING AT WAIST FOLLOW UP WITH THE MEDICAL CENTER THIS WEEK FOR FURTHER CARE All discharge instructions reviewed with patient and/or family. Voiced understanding. Scripts Methylprednisolone (Methylprednisolone Dose Pack) 4 Mg Tab.ds.pk 4 MG PO UD for 6 Days, #21 PKG PER DOSE PACK INSTRUCTIONS Prov: YAMEL HAN DO 04/30/21 Tizanidine HCl (Zanaflex) 4 Mg Capsule 4 MG PO TID for Spasms, #15 CAP Prov: YAMEL HAN DO 04/30/21 YAMEL HAN DO Apr 30, 2021 20:21
[2021-04-30] MEDS ORDERED: diphenhydrAMINE 50 MG/ML INJ (BENADRYL) IVP ONE (20:30)
[2021-04-30] MEDS ORDERED: KETOROLAC 30 MG/ML VIAL IVP ONE (20:30)
[2021-04-30] MEDS: ORPHENADRINE 60 MG/2 ML (NORFLEX) AMP (ED ONLY) IVP ONE ×2 (20:32→21:38)
[2021-04-30 20:45] LABS: BASOPHILS % (AUTO) 0 % (0-10); EOSINOPHILS # (AUTO) 0.1 10^3/uL (0.0-0.3); EOSINOPHILS % (AUTO) 1 % (0-10); HEMATOCRIT 41 % (35-52); HEMOGLOBIN 13.1 g/dL (11.5-16.0); LYMPHOCYTES # (AUTO) 1.2 10^3/uL (1.0-4.0); LYMPHOCYTES % (AUTO) 13 % (12-44); MEAN CORPUSCULAR HEMOGLOBIN 29 pg (25-34); MEAN CORPUSCULAR HGB CONC 32 g/dL (32-36); MEAN CORPUSCULAR VOLUME 89 fL (80-99); MEAN PLATELET VOLUME 10.5 fL (9.0-12.2); MONOCYTES # (AUTO) 0.5 10^3/uL (0.0-1.0); MONOCYTES % (AUTO) 6 % (0-12); NEUTROPHILS # (AUTO) 7.8 10^3/uL (1.8-7.8); NEUTROPHILS % (AUTO) 81 % (42-75); PLATELET COUNT 324 10^3/uL (130-400); WHITE BLOOD COUNT 9.7 10^3/uL (4.3-11.0)
--- NOTE | 2021-04-30 20:53 | Diagnostic Imaging Report ---
PROCEDURE: CT head and CT cervical spine without contrast. TECHNIQUE: Multiple contiguous axial images were obtained through the brain and cervical spine without the use of intravenous contrast. Sagittal and coronal reformations through the cervical spine were then performed. Auto Exposure Controls were utilized during the CT exam to meet ALARA standards for radiation dose reduction. INDICATION: Head and neck pain after trauma. FINDINGS: The ventricles and sulci are within normal limits. There is no hydrocephalus or cerebral edema. There is no midline shift or mass effect. There is no intracranial mass, hemorrhage or extra-axial fluid collection. The visualized paranasal sinuses and mastoid air cells are clear. No fractures are identified. CERVICAL SPINE: Alignment is normal. There is no fracture or traumatic subluxation. The prevertebral soft tissues are within normal limits. The odontoid is intact and the lateral masses are well aligned. There are no soft tissue abnormalities. IMPRESSION: 1. No acute intracranial process. 2. No focal abnormality in the cervical spine. Dictated by: Dictated on workstation # [id number]
--- NOTE | 2021-04-30 20:57 | Diagnostic Imaging Report ---
PROCEDURE: CT thoracic and lumbar spine without contrast. TECHNIQUE: Multiple contiguous axial images were obtained through the thoracic and lumbar spine without the use of intravenous contrast. Sagittal and coronal reformations were then performed. All CT scans use one or more of the following dose optimizing techniques: automated exposure control, MA and/or KvP adjustment based on a patient size and exam type, or iterative reconstruction. INDICATION: Back pain after trauma. FINDINGS: The alignment of the thoracic and lumbar spine is normal. There are mild degenerative changes in the thoracic spine. The vertebral body heights are well-maintained. There is no fracture or traumatic subluxation. There is no spondylolysis or spondylolisthesis. Visualized lungs are clear. Soft tissue structures are unremarkable. IMPRESSION: Mild thoracic spondylosis, however no acute fracture or traumatic subluxation in the thoracic or lumbar spine. Dictated by: Dictated on workstation # [id number]
[2021-04-30 21:21] LABS: ALBUMIN 4.2 GM/DL (3.2-4.5); BILIRUBIN,TOTAL 0.3 MG/DL (0.1-1.0); CALCIUM 9.4 MG/DL (8.5-10.1); CREATININE SERUM 0.7 MG/DL (0.60-1.30); MAGNESIUM 1.6 MG/DL (1.6-2.4); POTASSIUM 3.7 MMOL/L (3.6-5.0); TOTAL PROTEIN 7.4 GM/DL (6.4-8.2); TSH (THYROID ANALYZER) 0.92 UIU/ML (0.35-4.94)
[2021-04-30 21:23] LABS: ERYTHROCYTE SEDIMENTATION RATE 11 MM/HR (0-20)
[2021-04-30] MEDS ORDERED: METH4TAB10 PO (21:32)
[2021-04-30] MEDS ORDERED: TIZA4CAP PO (21:32)
[2021-04-30] MEDS ORDERED: RX-CYCLOBENZAPRINE 10 MG (FLEXERIL) TAB PPK#3 PO STA (21:33)
[2021-04-30 21:55] VITALS: BP 110/95
== END 2021-04-30 21:55 | disposition home or self-care (01) ==
LOC: EDUNIT# 19:08 → ER 19:11
DX: M54.2 Cervicalgia (principal); M54.50 Low back pain, unspecified; K21.9 Gastro-esophageal reflux disease without esophagitis; F41.9 Anxiety disorder, unspecified; E66.9 Obesity, unspecified; Z68.41 Body mass index [BMI] 40.0-44.9, adult; Z86.14 Personal history of Methicillin resistant Staphylococcus aureus infection; Z79.899 Other long term (current) drug therapy
CPT/HCPCS: 36415; 70450; 72125; 72128; 72131; 80053; 80306; 81000; 83735; 83874; 84443; 84703; 85025; 85652; 86141

== ENCOUNTER 2022-07-17 08:34 | Emergency (ER) | payer OTHER ==
[~2022-07-17] VITALS: Ht 175 cm; Wt 130.0 kg
[~2022-07-17 08:34] MED LIST changes: +CLIN-144 PO; -CLIN300C12 PO; +FLUV100T21 PO; -FLUV100T3 PO; +METH4TAB10 PO; +TIZA4CAP PO
[2022-07-17] MEDS ORDERED: [UNRECOGNIZED DRUG - CODE] (08:56)
[2022-07-17] MEDS ORDERED: NORG1TAB33 (08:56)
[2022-07-17] MEDS ORDERED: TOPI50TA13 (08:56)
[2022-07-17] MEDS ORDERED: CETI10CA PO (08:56)
[2022-07-17] MEDS ORDERED: fentaNYL INJ 100 MCG/2 ML AMP IVP STA (09:40)
[2022-07-17] MEDS ORDERED: KETOROLAC 30 MG/ML VIAL IVP STA (09:40)
[2022-07-17] MEDS ORDERED: NS IV 1000 ML 1,000 ML IV STA (09:40)
--- NOTE | 2022-07-17 09:43 | ED Abdominal Pain ---
General Chief Complaint: Abdominal/GI Problems Stated Complaint: ABD & BACK PAIN Nursing Triage Note: PT AMB TO RM 7 PT CO OF LOWER ABD SEVERE STARTED AT APPROX 0330.PT STATES HAS HAD SOME PAIN FOR A FEW YEARS, STATES TODAY IS DIFFERENT PT DOES HAVE HX OF OVARIAN CYST. PT CO OF LOWER PAIN IN ABD AND BACK 04/27. PT CO OF NAUSEA. PT CO OF CONSTIPATION. LAST BM 07/16/22. LMP STATES LAST MONTH. PT STATES HURTS TO HAVE SEX. Source of Information: Patient Exam Limitations: No Limitations History of Present Illness Date Seen by Provider: Jul 17, 2022 Time Seen by Provider: 09:31 Initial Comments Here with lower abdominal pain that started very early this morning and kept her awake. She has had intermittent pain for the last few years. States the pain is lower and radiates around to her back on both sides. She has been following with her log getter for this because she has had multiple ovarian cysts. She states this feels a little different than the cyst. She does report vaginal discharge but states it is fairly normal and denies bleeding currently. She does have pain with sexual intercourse. This is also not new. She does not believe that she is but states that she could be. She has had ultrasound done previously but not CT. She did have a Pap smear recently that was negative for dysplasia or cancer. Previous testing for infection has also been negative per the patient. Reports that she has been a little constipated this week but did have a bowel movement yesterday. Denies dysuria. Timing/Duration: 12 Hours Severity/Quality: Moderate, Aching Location: Suprapubic Radiation: RLQ, LLQ, Back, Other ("Feels like a tire around her waist") Associated Symptoms: Back Pain; No Chest Pain, No Fever/Chills, No Nausea/Vomiting, No Weakness Allergies and Home Medications Allergies Coded Allergies: pantoprazole (Verified Allergy, Unknown, 10/22/16) Patient Home Medication List Home Medication List Reviewed: Yes Cetirizine HCl (Zyrtec) 10 Mg Capsule, 10 MG PO DAILY, (Reported) Entered as Reported by: KHLOE MCCARTHY on 07/17/22 0856 Last Action: New Order Fluvoxamine Maleate (Fluvoxamine Maleate ER) 100 Mg Cap.er.24h, 200 MG DAILY, (Reported) Entered as Reported by: KHLOE MCCARTHY on 07/17/22855 Last Action: New Order Norgestrel-Ethinyl Estradiol (Kxe-Sjgilsyb-71 Tablet) 0.3 Mg-30 Mcg Tablet, (Reported) Entered as Reported by: KHLOE MCCARTHY on 07/17/22855 Last Action: New Order Topiramate (Topiramate) 50 Mg Tablet, (Reported) Entered as Reported by: KHLOE MCCARTHY on 07/17/22855 Last Action: New Order Discontinued Medications Acetazolamide (Acetazolamide) 250 Mg Tablet, 500 MG PO BID, (Reported) Discontinued Reason: No Longer Taking Entered as Reported by: ALYSA VILLAGOMEZ on 10/22/16 7147 Last Action: Discontinued Cyclobenzaprine HCl (Cyclobenzaprine HCl) 5 Mg Tablet, 5 MG PO TID PRN for PAIN- MODERATE TO SEVERE Discontinued Reason: No Longer Taking Prescribed by: ARIC ZHANG on 04/05/179 Last Action: Discontinued Cyclobenzaprine HCl (Cyclobenzaprine HCl) 5 Mg Tablet, 5 MG PO TID PRN for PAIN-MODERATE Discontinued Reason: No Longer Taking Prescribed by: ARIC ZHANG on 04/05/17 765 Last Action: Discontinued Fluvoxamine Maleate (Fluvoxamine Maleate) 100 Mg Tablet, 100 MG PO DAILY, (Reported) Discontinued Reason: No Longer Taking Entered as Reported by: KEVAN BOWENS on 04/05/17 1148 Last Action: Discontinued Methylprednisolone (Methylprednisolone Dose Pack) 4 Mg Tab.ds.pk, 4 MG PO UD Discontinued Reason: No Longer Taking Prescribed by: YAMEL HAN on 04/30/212131 Last Action: Discontinued Naproxen (Naprosyn) 500 Mg Tablet, 500 MG PO BID PRN for PAIN-MODERATE TO SEVERE Discontinued Reason: No Longer Taking Prescribed by: ARIC ZHANG on 04/05/17 134 Last Action: Discontinued Naproxen (Naproxen) 500 Mg Tablet, 500 MG PO BID PRN for PAIN-MODERATE Discontinued Reason: No Longer Taking Prescribed by: ARIC ZHANG on 04/05/17 1355 Last Action: Discontinued Paroxetine HCl (Paroxetine HCl) 40 Mg Tablet, 40 MG PO, (Reported) Discontinued Reason: No Longer Taking Entered as Reported by: ALYSA VILLAGOMEZ on 10/22/16 2912 Last Action: Discontinued Ranitidine HCl (Zantac) 150 Mg Tablet, 150 MG PO BID, (Reported) Discontinued Reason: No Longer Taking Entered as Reported by: GOGO BOWENS on 01/21/172153 Last Action: Discontinued Tizanidine HCl (Zanaflex) 4 Mg Capsule, 4 MG PO TID Discontinued Reason: No Longer Taking Prescribed by: YAMEL HAN on 04/30/212131 Last Action: Discontinued Review of Systems Review of Systems Constitutional: see HPI; No chills, No fever EENTM: No Nose Congestion, No Throat Pain Respiratory: Denies Cough, Denies Shortness of Air Cardiovascular: Denies Chest Pain, Denies Edema Gastrointestinal: Abdominal Pain, Constipated Genitourinary: Discharge Musculoskeletal: back pain; No muscle pain Skin: no symptoms reported All Other Systems Reviewed Negative Unless Noted: Yes Past Ywqfwcl-Ppdudt-Jaotiu Hx Patient Social History Tobacco Use?: No Substance use?: No Alcohol Use?: No Immunizations Up To Date Tetanus Booster (TDap): Less than 5yrs First/Initial COVID19 Vaccinat: OCTOBER 2020 Second COVID19 Vaccination Axel: OCTOBER 2020 Third COVID19 Vaccination Date: OCTOBER 2020 Seasonal Allergies Seasonal Allergies: Yes Past Medical History Surgery/Hospitalization HX: CHOLECYSTECTOMY 03/2014, DENTAL Surgeries: Yes (DENTAL) Gallbladder Respiratory: No Cardiac: No Neurological: Yes (PSEUDOTUMOR CEREBRI) Last Menstrual Period: Jun 20, 2022 Reproductive Disorders: No PROCESSING SUPERVISOR History: IUD Sexually Transmitted Disease: No HIV/AIDS: No Genitourinary: No Gastrointestinal: Yes (S/P CHOLECYSTECTOMY) Gastroesophageal Reflux, Gall Bladder Disease Musculoskeletal: Yes Fractures Endocrine: Yes (OBESITY) HEENT: No Cancer: No Psychosocial: Yes (OCD) Anxiety Integumentary: Yes (MRSA) Blood Disorders: No Family Medical History Reviewed Nursing Family Hx No Pertinent Family Hx Physical Exam Vital Signs Vital Signs - First Documented 07/17/22 08:40 Temp 35.6 Pulse 83 Resp 18 B/P (MAP) 143/92 (109) Pulse Ox 97 Capillary Refill : Less Than 3 Seconds Height/Weight/BMI Height: 5'9.00" Weight: 263lbs. oz. [id number]; 42.00 BMI Method:Stated General Appearance: WD/WN, no apparent distress HEENT: PERRL/EOMI, pharynx normal Neck: full range of motion, supple Respiratory: lungs clear, normal breath sounds Cardiovascular: regular rate, rhythm, no murmur Peripheral Pulses: 2+ Dorsalis Pedis (R), 2+ Left Dors-Pedis (L), 2+ Radial Pulses (R), 2+ Radial Pulses (L) Gastrointestinal: soft; No guarding, No rebound; tenderness (Suprapubic) Extremities: non-tender, normal inspection Back: normal inspection, no CVA tenderness, no vertebral tenderness Neurologic/Psychiatric: alert, oriented x 3 Skin: normal color, warm/dry Progress/Results/Core Measures Results/Orders Lab Results Laboratory Tests Test 07/17/22 09:00 07/17/22 09:05 Range/Units White Blood Count 7.1 4.3-11.0 10^3/uL Red Blood Count 4.67 3.80-5.11 10^6/uL Hemoglobin 13.3 11.5-16.0 g/dL Hematocrit 41 35-52 % Mean Corpuscular Volume 89 80-99 fL Mean Corpuscular Hemoglobin 29 25-34 pg Mean Corpuscular Hemoglobin Concent 32 32-36 g/dL Red Cell Distribution Width 13.1 10.0-14.5 % Platelet Count 385 130-400 10^3/uL Mean Platelet Volume 10.0 9.0-12.2 fL Immature Granulocyte % (Auto) 0 % Neutrophils (%) (Auto) 65 42-75 % Lymphocytes (%) (Auto) 29 12-44 % Monocytes (%) (Auto) 4 0-12 % Eosinophils (%) (Auto) 1 0-10 % Basophils (%) (Auto) 0 0-10 % Neutrophils # (Auto) 4.6 1.8-7.8 10^3/uL Lymphocytes # (Auto) 2.1 1.0-4.0 10^3/uL Monocytes # (Auto) 0.3 0.0-1.0 10^3/uL Eosinophils # (Auto) 0.1 0.0-0.3 10^3/uL Basophils # (Auto) 0.0 0.0-0.1 10^3/uL Immature Granulocyte # (Auto) 0.0 0.0-0.1 10^3/uL Urine Color YELLOW Urine Clarity CLEAR Urine pH 6.0 5-9 Urine Specific [place] 1.025 H 1.016-1.022 Urine Protein NEGATIVE NEGATIVE Urine Glucose (UA) NEGATIVE NEGATIVE Urine Ketones NEGATIVE NEGATIVE Urine Nitrite NEGATIVE NEGATIVE Urine Bilirubin NEGATIVE NEGATIVE Urine Urobilinogen 0.2 < = 1.0 MG/DL Urine Leukocyte Esterase NEGATIVE NEGATIVE Urine RBC (Auto) NEGATIVE NEGATIVE Urine RBC NONE /HPF Urine WBC RARE /HPF Urine Squamous Epithelial Cells 2-5 /HPF Urine Crystals NONE /LPF Urine Bacteria FEW H /HPF Urine Casts NONE /LPF Urine Mucus NEGATIVE /LPF Urine Culture Indicated NO Sodium Level 139 135-145 MMOL/L Potassium Level 4.1 3.6-5.0 MMOL/L Chloride Level 107 98-107 MMOL/L Carbon Dioxide Level 20 L 21-32 MMOL/L Anion Gap 12 5-14 MMOL/L Blood Urea Nitrogen 11 7-18 MG/DL Creatinine 0.76 0.60-1.30 MG/DL Estimat Glomerular Filtration Rate 107 BUN/Creatinine Ratio 14 Glucose Level 129 H 70-105 MG/DL Calcium Level 9.4 8.5-10.1 MG/DL Corrected Calcium 9.3 8.5-10.1 MG/DL Total Bilirubin 0.3 0.1-1.0 MG/DL Aspartate Amino Transf (AST/SGOT) 17 5-34 U/L Alanine Aminotransferase (ALT/SGPT) 20 0-55 U/L Alkaline Phosphatase 45 40-136 U/L C-Reactive Protein High Sensitivity 1.85 H 0.00-0.50 MG/DL Total Protein 7.8 6.4-8.2 GM/DL Albumin 4.1 3.2-4.5 GM/DL Urine Test NEGATIVE NEGATIVE Micro Results Microbiology 07/17/22 Wet Prep - Final, Complete My Orders Orders - BARBIE LANGE MD Ed Iv/Invasive Line Start (07/17/22 09:40) Urine Bedside (07/17/22 09:40) Cbc With Automated Diff (07/17/22 09:40) Comprehensive Metabolic Panel (07/17/22 09:40) Hs C Reactive Protein (07/17/22 09:40) Ua Culture If Indicated (07/17/22 09:40) Fentanyl Inj (Sublimaze Injection) (07/17/22 09:40) Ketorolac Injection (Toradol Injection) (07/17/22 09:40) Ns Iv 1000 Ml (Sodium Chloride 0.9%) (07/17/22 09:40) Ct Abdomen/Pelvis W (07/17/22 09:40) Wet Prep (07/17/22 09:42) Iohexol Injection (Omnipaque 350 Mg/Ml 1 (07/17/22 10:00) Received Contrast (Hold Metformin- Contr (07/17/22 10:00) Ns (Ivpb) (Sodium Chloride 0.9% Ivpb Bag (07/17/22 10:00) Hcg,Qualitative Urine (07/17/22 10:32) Fentanyl Inj (Sublimaze Injection) (07/17/22 11:30) Medications Given in ED Current Medications Medications Dose Ordered Sig/Divya Route Start Time Stop Time Status Last Admin Dose Admin Fentanyl Citrate 50 mcg ONCE ONCE IVP 07/17/22 11:30 07/17/22 11:31 DC 07/17/22 11:25 50 MCG Iohexol 100 ml ONCE ONCE IV 07/17/22 10:00 07/17/22 10:01 DC 07/17/22 11:08 100 ML Sodium Chloride 100 ml ONCE ONCE IV 07/17/22 10:00 07/17/22 10:01 DC 07/17/22 11:08 80 ML Vital Signs/I&O 07/17/22 08:40 Temp 35.6 Pulse 83 Resp 18 B/P (MAP) 143/92 (109) Pulse Ox 97 Blood Pressure Mean: 109 Progress Progress Note : Progress Note Seen and evaluated. IV, labs including CBC, CMP and UA ordered. We will get wet prep. We will go ahead and get CT abdomen pelvis to rule out intra- abdominal pathology including mass, appendicitis, abscess or other abnormal pathology. Normal saline 1 L bolus ordered. Fentanyl 50 mcg IV and Toradol 30 mg IV ordered. Monitor patient. 1203: Patient is clear did not show any acute findings. Wet prep does show clue cells and I believe this is likely the cause of her pain. Chemistries and CBC were normal. No significant findings on UA. We will initiate outpatient treatment for bacterial vaginosis with Flagyl 500 mg p.o. twice daily. This was discussed with the patient including side effects. Discharged home with return precaution. Patient verbalized understanding instructions and agreement with plan. Diagnostic Imaging Diagonstic Imaging: CT Plain Films/CT/US/NM/MRI: abdomen, pelvis Comments [facility]. [place], [place] NAME: CARLIN FELTON [facility] REC#: [id number] PT STATUS: REG ER : 1990 PHYSICIAN: BARBIE LANGE MD ADMIT DATE: 07/17/22/ER Draft Date of Exam:07/17/22 CT ABDOMEN/PELVIS W PROCEDURE: CT abdomen and pelvis with contrast. TECHNIQUE: Multiple contiguous axial images were obtained through the abdomen and pelvis after administration of intravenous contrast. Auto Exposure Controls were utilized during the CT exam to meet ALARA standards for radiation dose reduction. All CT scans use one or more of the following dose optimizing techniques: automated exposure control, MA and/or KvP adjustment based on patient size and exam type or iterative reconstruction. INDICATION: Left lower quadrant pain, nausea and constipation. COMPARED with study 04/05/2017 A punctate calculus of 1 to 2 mm within a mid pole left renal calyx present. No solid or cystic renal mass. No hydronephrosis. No perinephric edema. No opaque ureteral stone. Bladder unremarkable. The uterus and adnexa unremarkable. There is an air-containing appendix without appendicitis. There is no diverticulitis. Gallbladder is surgically absent. No pathological ductal dilatation. Liver, spleen, adrenals and pancreas all unremarkable. The aorta is nonaneurysmal. There is no bowel obstruction. No ileus. No abnormal fecal loading. Tiny fatty umbilical hernia, chronic and noninflamed. IMPRESSION: Nonobstructing punctate left kidney stone. Nonacute appendix. Fatty umbilical hernia, chronic. Prior cholecystectomy without apparent complication. No obstructive features, inflammatory processes or acute abnormalities identified. Dictated on workstation # [id number] Dict: 07/17/22 1113 Trans: 07/17/22 1123 [facility] [id number] Interpreted by: JADIEL CURRAN Electronically signed by: Reviewed: Reviewed by Me Departure Impression Primary Impression: Bacterial vaginosis Additional Impression: Pelvic pain Disposition: 01 HOME, SELF-CARE Condition: Stable Departure-Patient Inst. Decision time for Depature: 12:05 Referrals: NO,LOCAL PHYSICIAN (PCP/Family) Primary Care Physician Patient Instructions: Bacterial Vaginosis ED, Pelvic Pain ED Add. Discharge Instructions: All discharge instructions reviewed with patient and/or family. Voiced understanding. Take medications as directed. Do not drink alcohol with the prescribed antibiotic as it will likely cause vomiting. Follow-up with your log getter for recheck and further evaluation. Return for worse pain, fever, vomiting, weakness, breathing problems or other concerns as needed. You may take ibuprofen 800 mg every 8 hours as needed for pain. You may also take Tylenol/acetaminophen 1000 mg every 8 hours as needed for pain. Scripts Metronidazole (Metronidazole) 500 Mg Tablet 500 MG PO BID, #14 TAB 0 Refills Prov: BARBIE LANGE MD 07/17/22 BARBIE LANGE MD Jul 17, 2022 09:43
[2022-07-17 09:48] LABS: BASOPHILS % (AUTO) 0 % (0-10); EOSINOPHILS # (AUTO) 0.1 10^3/uL (0.0-0.3); EOSINOPHILS % (AUTO) 1 % (0-10); HEMATOCRIT 41 % (35-52); HEMOGLOBIN 13.3 g/dL (11.5-16.0); LYMPHOCYTES # (AUTO) 2.1 10^3/uL (1.0-4.0); LYMPHOCYTES % (AUTO) 29 % (12-44); MEAN CORPUSCULAR HEMOGLOBIN 29 pg (25-34); MEAN CORPUSCULAR HGB CONC 32 g/dL (32-36); MEAN CORPUSCULAR VOLUME 89 fL (80-99); MONOCYTES # (AUTO) 0.3 10^3/uL (0.0-1.0); MONOCYTES % (AUTO) 4 % (0-12); NEUTROPHILS # (AUTO) 4.6 10^3/uL (1.8-7.8); NEUTROPHILS % (AUTO) 65 % (42-75); PLATELET COUNT 385 10^3/uL (130-400); WHITE BLOOD COUNT 7.1 10^3/uL (4.3-11.0)
[2022-07-17 09:50] LABS: ALBUMIN 4.1 GM/DL (3.2-4.5); POTASSIUM 4.1 MMOL/L (3.6-5.0)
[2022-07-17 09:52] LABS: CALCIUM 9.4 MG/DL (8.5-10.1)
[2022-07-17 09:53] LABS: TOTAL PROTEIN 7.8 GM/DL (6.4-8.2)
[2022-07-17 09:55] LABS: BILIRUBIN,TOTAL 0.3 MG/DL (0.1-1.0)
[2022-07-17 09:57] LABS: BILIRUBIN,URINE NEGATIVE (NEGATIVE); CLARITY,URINE CLEAR; COLOR,URINE YELLOW; CREATININE SERUM 0.76 MG/DL (0.60-1.30); GLUCOSE, URINE (UA) NEGATIVE (NEGATIVE); KETONES,URINE NEGATIVE (NEGATIVE); LEUKOCYTE ESTERASE ,URINE NEGATIVE (NEGATIVE); NITRITE,URINE NEGATIVE (NEGATIVE); PROTEIN,URINE NEGATIVE (NEGATIVE)
[2022-07-17] MEDS ORDERED: IOHEXOL 350 MG/ML 100 ML (OMNIPAQUE 350) VIAL IV ONE (10:00)
[2022-07-17] MEDS ORDERED: NS 100 ML (IVPB) BAG IV ONE (10:00)
[2022-07-17] MEDS ORDERED: HOLD METFORMIN - RECEIVED CONTRAST 20 ML VIAL IV SCH (10:00)
[2022-07-17 10:10] LABS: BACTERIA,URINE FEW /HPF; WBC,URINE RARE /HPF
--- NOTE | 2022-07-17 11:24 | Diagnostic Imaging Report ---
PROCEDURE: CT abdomen and pelvis with contrast. TECHNIQUE: Multiple contiguous axial images were obtained through the abdomen and pelvis after administration of intravenous contrast. Auto Exposure Controls were utilized during the CT exam to meet ALARA standards for radiation dose reduction. All CT scans use one or more of the following dose optimizing techniques: automated exposure control, MA and/or KvP adjustment based on patient size and exam type or iterative reconstruction. INDICATION: Left lower quadrant pain, nausea and constipation. COMPARED with study 04/05/2017 A punctate calculus of 1 to 2 mm within a mid pole left renal calyx present. No solid or cystic renal mass. No hydronephrosis. No perinephric edema. No opaque ureteral stone. Bladder unremarkable. The uterus and adnexa unremarkable. There is an air-containing appendix without appendicitis. There is no diverticulitis. Gallbladder is surgically absent. No pathological ductal dilatation. Liver, spleen, adrenals and pancreas all unremarkable. The aorta is nonaneurysmal. There is no bowel obstruction. No ileus. No abnormal fecal loading. Tiny fatty umbilical hernia, chronic and noninflamed. IMPRESSION: Nonobstructing punctate left kidney stone. Nonacute appendix. Fatty umbilical hernia, chronic. Prior cholecystectomy without apparent complication. No obstructive features, inflammatory processes or acute abnormalities identified. Dictated by: Dictated on workstation # [id number]
[2022-07-17] MEDS ORDERED: fentaNYL INJ 100 MCG/2 ML AMP IVP ONE (11:30)
[2022-07-17] MEDS ORDERED: METR-145 PO (12:05)
[2022-07-17 12:17] VITALS: BP 136/84
== END 2022-07-17 12:16 | disposition home or self-care (01) ==
LOC: EDUNIT# 08:34 → ER 08:35
DX: N76.0 Acute vaginitis (principal); R10.2 Pelvic and perineal pain; E66.9 Obesity, unspecified; Z68.41 Body mass index [BMI] 40.0-44.9, adult; Z32.02 Encounter for pregnancy test, result negative
CPT/HCPCS: 36415; 74177; 80053; 81000; 84703; 85025; 86141; 87210; 96361; 96374; 96375; 96376

== ENCOUNTER 2022-09-04 07:56 | Emergency (ER) | payer OTHER ==
[~2022-09-04] VITALS: Ht 175 cm; Wt 127.0 kg
[~2022-09-04 07:56] MED LIST changes: +CETI10CA PO; +METR-145 PO; +NORG1TAB33; +TOPI50TA13; +[UNRECOGNIZED DRUG - CODE]
[2022-09-04 08:20] LABS: BILIRUBIN,URINE NEGATIVE (NEGATIVE); CLARITY,URINE SL CLOUDY; COLOR,URINE YELLOW; GLUCOSE, URINE (UA) NEGATIVE (NEGATIVE); KETONES,URINE NEGATIVE (NEGATIVE); LEUKOCYTE ESTERASE ,URINE NEGATIVE (NEGATIVE); NITRITE,URINE NEGATIVE (NEGATIVE); PROTEIN,URINE NEGATIVE (NEGATIVE)
--- NOTE | 2022-09-04 08:31 | ED General ---
General Chief Complaint: - Reproductive Stated Complaint: KIDNEY PAIN Nursing Triage Note: PT AMB TO RM 5 PT CO OF KIDNEY PAIN MOSTLY ON L FLANK AREA. PT STATES STARTED ON WEDNESDAY NIGHT, WAS SEEN AT URGENT CARE AND STARTED ON BACTRIM DS AND FLEXERIL AND IS NOT FEELING ANY BETTER. RATES PAIN 10/10. PT STATES HAS NOT SLEPT FOR 3 NIGHTS. DENIES UTI SX. PT DOES STATES ONLY URINATING SMALL AMT Source of Information: Patient Exam Limitations: No Limitations History of Present Illness Date Seen by Provider: Sep 04, 2022 Time Seen by Provider: 08:06 Initial Comments This 32-year-old woman presents to the emergency room with left lower back pain. She denies any abdominal pain, dysuria, or hematuria. She was seen in the urgent care on WednesdaySeptember 02 and prescribed Bactrim "just in case" although no urinary tract infection was identified. She was prescribed a muscle relaxer which she states was unhelpful. She has also been taking ibuprofen which was also unhelpful. She has had some associated nausea but has not been vomiting. She does not report any radicular symptoms, saddle paresthesia, or bowel or bladder dysfunction. There is no strenuous or traumatic incident that triggered the pain. Pain has been present for less than a week and it started when at rest. Her primary care provider is Addie Lopez at [facility] Allergies and Home Medications Allergies Coded Allergies: pantoprazole (Verified Allergy, Unknown, 10/22/16) Patient Home Medication List Home Medication List Reviewed: Yes Cetirizine HCl (Zyrtec) 10 Mg Capsule, 10 MG PO DAILY, (Reported) Entered as Reported by: KHLOE MCCARTHY on 07/17/22 0856 Fluvoxamine Maleate (Fluvoxamine Maleate ER) 100 Mg Cap.er.24h, 200 MG DAILY, (Reported) Entered as Reported by: KHLOE MCCARTHY on 07/17/22 0856 Hydrocodone/Acetaminophen (Hydrocodone-Acetamin 5-325 mg) 5 Mg-325 Mg Tablet, 1- 2 TAB PO Q4H PRN for PAIN-MODERATE (5-7) Prescribed by: HCIKI BROCK on 09/04/22 0911 Metronidazole (Metronidazole) 500 Mg Tablet, 500 MG PO BID Prescribed by: BARBIE LANGE on 07/17/22 1205 Norgestrel-Ethinyl Estradiol (Edu-Txmwmhsm-96 Tablet) 0.3 Mg-30 Mcg Tablet, (Reported) Entered as Reported by: KHLOE MCCARTHY on 07/17/22 0856 Prednisone (Prednisone) 20 Mg Tab, 40 MG PO DAILY Prescribed by: CHIKI BROCK on 09/04/22 0910 Topiramate (Topiramate) 50 Mg Tablet, (Reported) Entered as Reported by: KHLOE MCCARTHY on 07/17/22 0856 Review of Systems Review of Systems Constitutional: no symptoms reported Gastrointestinal: no symptoms reported Genitourinary: no symptoms reported : No Musculoskeletal: see HPI Psychiatric/Neurological: No Symptoms Reported Past Awsbdts-Iefqdq-Wbcxxy Hx Patient Social History Tobacco Use?: No Substance use?: No Alcohol Use?: No Pt feels they are or have been: No Immunizations Up To Date Tetanus Booster (TDap): Less than 5yrs Influenza Vaccine Up-to-Date: No; Not Current First/Initial COVID19 Vaccinat: OCTOBER 2020 Second COVID19 Vaccination Axel: OCTOBER 2020 Third COVID19 Vaccination Date: OCTOBER 2020 Seasonal Allergies Seasonal Allergies: Yes Past Medical History Surgery/Hospitalization HX: CHOLECYSTECTOMY 03/2014, DENTAL, ANXIETY, OCD, IDOPATHIC HTN Surgeries: Yes (DENTAL) Gallbladder Respiratory: No Cardiac: No Neurological: Yes (PSEUDOTUMOR CEREBRI) : No Last Menstrual Period: Aug 17, 2022 Reproductive Disorders: No [employer] History: IUD Sexually Transmitted Disease: No HIV/AIDS: No Genitourinary: No Gastrointestinal: Yes (S/P CHOLECYSTECTOMY) Gastroesophageal Reflux, Gall Bladder Disease Musculoskeletal: Yes Fractures Endocrine: Yes (OBESITY) HEENT: No Cancer: No Psychosocial: Yes (OCD) Anxiety Integumentary: Yes (MRSA) Blood Disorders: No Family Medical History No Pertinent Family Hx Physical Exam Vital Signs Vital Signs - First Documented 09/04/22 08:00 Temp 36.9 Pulse 92 Resp 18 B/P (MAP) 146/107 (120) Pulse Ox 99 Capillary Refill : Less Than 3 Seconds Height, Weight, BMI Height: 5'9.00" Weight: 263lbs. oz. 119.928308lx; 41.00 BMI Method:Stated General Appearance: No Apparent Distress, WD/WN, Obese HEENT: Normal ENT Inspection Neck: Normal Inspection Respiratory: Lungs Clear, Normal Breath Sounds, No Accessory Muscle Use Cardiovascular: Regular Rate, Rhythm, No Edema, No Murmur Gastrointestinal: Normal Bowel Sounds, Non Tender, Soft; No Distended Back: Normal Inspection, Other (Mild tenderness just superior to the left SI joint) Extremity: Normal Inspection, No Pedal Edema Neurologic/Psychiatric: Alert, Oriented x3, No Motor/Sensory Deficits, Normal Mood/Affect Skin: Normal Color, Warm/Dry Progress/Results/Core Measures Suspected Sepsis SIRS Temperature: Pulse: 92 Respiratory Rate: 18 Blood Pressure 146 /107 Mean: 120 Results/Orders Lab Results Laboratory Tests Test 09/04/22 08:15 Range/Units Urine Color YELLOW Urine Clarity SL CLOUDY Urine pH 6.0 5-9 Urine Specific [place] >=1.030 1.016-1.022 Urine Protein NEGATIVE NEGATIVE Urine Glucose (UA) NEGATIVE NEGATIVE Urine Ketones NEGATIVE NEGATIVE Urine Nitrite NEGATIVE NEGATIVE Urine Bilirubin NEGATIVE NEGATIVE Urine Urobilinogen 0.2 < = 1.0 MG/DL Urine Leukocyte Esterase NEGATIVE NEGATIVE Urine RBC (Auto) NEGATIVE NEGATIVE Urine RBC NONE /HPF Urine WBC 0-2 /HPF Urine Squamous Epithelial Cells 10-25 H /HPF Urine Renal Epithelial Cells NONE /HPF Urine Crystals NONE /LPF Urine Bacteria FEW H /HPF Urine Casts NONE /LPF Urine Mucus LARGE H /LPF Urine Other FEW TRANS EPI /HPF Urine Culture Indicated YES Micro Results Microbiology 09/04/22 Urine Culture - Final, Complete NO GROWTH My Orders Orders - CHIKI CHAIREZ MD Ua Culture If Indicated (09/04/22 08:06) Urine Culture (09/04/22 08:15) Vital Signs/I&O 09/04/22 09/04/22 08:00 09:16 Temp 36.9 Pulse 92 92 Resp 18 18 B/P (MAP) 146/107 (120) 140/88 Pulse Ox 99 99 Capillary Refill : Less Than 3 Seconds Blood Pressure Mean: 120 Progress Note : Progress Note There were no significant exam findings aside from mild tenderness superior to the left SI joint. We discussed possible causes of her pain. Pain is most likely musculoskeletal in nature, possibly secondary to lumbar disc disease. No pyuria or hematuria was noted on urinalysis. This makes urinary tract infection or ureteral stone much less likely. We discussed imaging including CT stone search for further evaluation. I explained that I do not expect to find a ureteral stone on a CT scan and that risks of CT include radiation exposure and cost. She is agreeable to forego CT imaging at this time. We will treat conservatively with pain management and steroids. See discharge instructions for further discussion. Departure Impression Primary Impression: Low back pain Qualified Codes: M54.50 - Low back pain, unspecified Disposition: HOME, SELF-CARE Condition: Stable Departure-Patient Inst. Decision time for Depature: 09:05 Referrals: ADDIE LOPEZ APRN (PCP/Family) Primary Care Physician Patient Instructions: Low Back Pain ED Add. Discharge Instructions: Make an appointment to follow-up with your primary care provider soon as possible. Preferably call today to get on the schedule. Your primary care provider may wish to perform additional studies such as MRI or refer you to additional therapy such as physical therapy at her discretion. Primary pain control should be attempted with ulzn-tkx-yfcvvhp medications such as ibuprofen up to 600 mg every 6 hours and/or Tylenol (acetaminophen) up to 1000 mg every 6 hours as needed. For pain not controlled by yvqr-ukn-qbycdah medications, you may add hydrocodone as prescribed. Please be aware that each hydrocodone tablet contains 325 mg of Tylenol (acetaminophen), so do not exceed more than 1000 mg of total acetaminophen dosing every 6 hours. Hydrocodone may cause drowsiness and constipation. Please use with caution, and do not drive or operate machinery while on hydrocodone. You may wish to use a stool softener such as Colace while on hydrocodone to prevent constipation. Avoid heavy lifting and strenuous activities until pain completely resolves. Gentle heat on your lower back may additionally help alleviate pain. Work toward weight loss as you are able to reduce strain on your back. Once your acute back pain has resolved, work with your primary care provider to develop a core body strengthening regimen to prevent further back pain. Kidney stone and urinary tract infection are not suspected based on your symptoms and urinalysis, but they have not been completely ruled out. If you develop blood in your urine, pain that is moving into the abdomen, etc., you may discuss further evaluation for these conditions with your primary care doctor. Complete the antibiotics as prescribed. Return to the emergency room if you have escalating pain that is not responsive to medications or if you develop true muscle weakness in your legs, loss of control of your legs, numbness in your groin, or bowel or bladder control problems. All discharge instructions reviewed with patient and/or family. Voiced understanding. Scripts Prednisone (Prednisone) 20 Mg Tab 40 MG PO DAILY, #8 TAB 0 Refills Take early in the day with food or milk to avoid sleep disturbance and stomach upset. Prov: CHIKI CHAIREZ MD 09/04/22 Hydrocodone/Acetaminophen (Hydrocodone-Acetamin 5-325 mg) 5 Mg-325 Mg Tablet 1-2 TAB PO Q4H PRN for PAIN-MODERATE (5-7), #10 TAB Prov: CHIKI CHAIREZ MD 09/04/22 CHIKI CHAIREZ MD Sep 04, 2022 08:31
[2022-09-04 08:41] LABS: BACTERIA,URINE FEW /HPF; WBC,URINE 0-2 /HPF
[2022-09-04 08:42] LABS: URINE OTHER FEW TRANS EPI /HPF
[2022-09-04] MEDS ORDERED: ACHD5005 PO (09:10)
[2022-09-04] MEDS ORDERED: PRD20T PO (09:10)
[2022-09-04 09:16] VITALS: BP 140/88
== END 2022-09-04 09:16 | disposition home or self-care (01) ==
LOC: EDUNIT# 07:56 → ER 07:58
DX: M54.50 Low back pain, unspecified (principal); E66.9 Obesity, unspecified; Z68.41 Body mass index [BMI] 40.0-44.9, adult
CPT/HCPCS: 81000; 87088; 99282

== ENCOUNTER 2023-05-03 13:10 | Emergency (ER) | payer OTHER ==
[~2023-05-03] VITALS: Ht 175 cm; Wt 115.6 kg
[~2023-05-03 13:10] MED LIST changes: +PRD20T PO; +TOPI-241; -TOPI50TA13
[2023-05-03] MEDS ORDERED: NS IV 1000 ML 1,000 ML IV STA (14:12)
[2023-05-03] MEDS ORDERED: ONDANSETRON INJECTION 4 MG/2 ML (SDV) IVP ONE (14:15)
--- NOTE | 2023-05-03 14:24 | ED Abdominal Pain ---
General Chief Complaint: Abdominal/GI Problems Stated Complaint: ABD PAIN | VOMITING | CHILLS Nursing Triage Note: PT AMB TO TRIAGE WITH C/O SEVERE ABD PAIN THAT BEGAN ABOUT 11AM, SLIGHT ABDOMINAL PAIN WHEN WAKING UP THIS MORNING. PT HAS VOMITTED MULTIPLE TIMES TODAY AND DRY HEAVING Source of Information: Patient Exam Limitations: No Limitations (HARMAN VYAS) History of Present Illness Date Seen by Provider: May 03, 2023 Time Seen by Provider: 14:26 Initial Comments Patient is a 33-year-old female with a history of cholecystectomy presents ED with abdominal pain. Abdominal pain started this morning. She states pain intensified around 11. Sharp pain in her upper abdomen. She did go to the bathroom she vomited several times and did have some improvement. The pain then migrated to her right lower quadrant. No radiation. She is continue having nausea. No diarrhea. No pain with urination frequent urination. Last menstrual cycle was last Wednesday. She denies of any fever, chills, nausea, vomiting, diarrhea. She did take Zofran at home without much improvement. Denies take any pain medication. No history of kidney stones. History of ovarian cyst. She reports chills body aches. She denies chest pain, cough, shortness of breath, sore throat, ear pain, headache. (HARMAN VYAS) Allergies and Home Medications Allergies Coded Allergies: pantoprazole (Verified Allergy, Unknown, 05/03/23) Patient Home Medication List Home Medication List Reviewed: Yes (HARMAN VYAS) Cetirizine HCl (Zyrtec) 10 Mg Capsule, 10 MG PO DAILY, (Reported) Entered as Reported by: KHLOE MCCARTHY on 07/17/22 0856 Fluvoxamine Maleate (Fluvoxamine Maleate ER) 100 Mg Cap.er.24h, 200 MG DAILY, (Reported) Entered as Reported by: KHLOE MCCARTHY on 07/17/22 0856 Hydrocodone/Acetaminophen (Hydrocodone-Acetamin 5-325 mg) 5 Mg-325 Mg Tablet, 1- 2 TAB PO Q4H PRN for PAIN-MODERATE (5-7) Prescribed by: CHIKI BROCK on 09/04/22 0911 Hydrocodone/Acetaminophen (Hydrocodone-Acetamin 5-325 mg) 5 Mg-325 Mg Tablet, 1 TAB PO Q4H PRN for PAIN-MODERATE (5-7) Prescribed by: ISREAL ESPINAL on 05/03/23 1712 Metronidazole (Metronidazole) 500 Mg Tablet, 500 MG PO BID Prescribed by: BARBIE LANGE on 07/17/22 1205 Norgestrel-Ethinyl Estradiol (Lfd-Wlxvyihd-83 Tablet) 0.3 Mg-30 Mcg Tablet, (Reported) Entered as Reported by: KHLOE MCCARTHY on 07/17/22 0856 Prednisone (Prednisone) 20 Mg Tab, 40 MG PO DAILY Prescribed by: CHIKI BROCK on 09/04/22 0910 Topiramate (Topiramate) 50 Mg Tablet, (Reported) Entered as Reported by: KHLOE MCCARTHY on 07/17/22 0856 Review of Systems Review of Systems Constitutional: No chills, No diaphoresis, No malaise, No weakness EENTM: No Double Vision, No Eye Pain Respiratory: Denies Cough, Denies Orthopnea Cardiovascular: Denies Chest Pain Gastrointestinal: Abdominal Pain; Denies Diarrhea; Nausea, Vomiting Genitourinary: Denies Burning, Denies Discharge, Denies Drainage, Denies Frequency Musculoskeletal: No back pain, No joint pain Skin: No change in color, No change in hair/nails (HARMAN VYAS) All Other Systems Reviewed Negative Unless Noted: Yes (HARMAN VYAS) Past Lkidwxd-Evlhvd-Pckgde Hx Patient Social History Tobacco Use?: No Use of E-Cig and/or Vaping dev: No Substance use?: No Alcohol Use?: No Pt feels they are or have been: No (HARMAN VYAS) Immunizations Up To Date Tetanus Booster (TDap): Less than 5yrs First/Initial COVID19 Vaccinat: OCTOBER 2020 Second COVID19 Vaccination Axel: OCTOBER 2020 Third COVID19 Vaccination Date: OCTOBER 2020 (HARMAN VYAS) Seasonal Allergies Seasonal Allergies: Yes (HARMAN VYAS) Past Medical History Surgery/Hospitalization HX: CHOLECYSTECTOMY 03/2014, DENTAL, ANXIETY, OCD, IDOPATHIC HTN, DM-2 Surgeries: Yes (DENTAL) Gallbladder Respiratory: No Cardiac: No Neurological: Yes (PSEUDOTUMOR CEREBRI) Last Menstrual Period: Apr 26, 2023 Reproductive Disorders: No [employer] History: IUD Sexually Transmitted Disease: No HIV/AIDS: No Genitourinary: No Gastrointestinal: Yes (S/P CHOLECYSTECTOMY) Gastroesophageal Reflux, Gall Bladder Disease Musculoskeletal: Yes Fractures Endocrine: Yes (OBESITY) HEENT: No Cancer: No Psychosocial: Yes (OCD) Anxiety Integumentary: Yes (MRSA) Blood Disorders: No (HARMAN VYAS) Family Medical History No Pertinent Family Hx (HARMAN VYAS) Physical Exam Vital Signs Vital Signs - First Documented 05/03/23 14:04 Temp 36.8 Pulse 88 Resp 14 B/P (MAP) 107/77 (87) Pulse Ox 93 O2 Delivery Room Air (CHIKI CHAIREZ MD) Vital Signs Capillary Refill : (HARMAN VYAS) Height/Weight/BMI Height: 5'9.00" Weight: 263lbs. oz. 119.112564ch; 37.00 BMI Method:Stated General Appearance: WD/WN, no apparent distress HEENT: PERRL/EOMI, normal ENT inspection, TMs normal, pharynx normal Neck: non-tender, full range of motion, supple Respiratory: chest non-tender, lungs clear, normal breath sounds, no respiratory distress, no accessory muscle use Cardiovascular: regular rate, rhythm, no edema, no gallop, no JVD Gastrointestinal: tenderness (Right lower quadrant tenderness. Normal bowel sounds throughout. No rebound or guarding.) Extremities: normal range of motion, non-tender, normal inspection, no pedal ed tyrese Back: normal inspection, no CVA tenderness, no vertebral tenderness Neurologic/Psychiatric: vat skimmer II-XII nml as tested, no motor/sensory deficits, alert, normal mood/affect, oriented x 3 Skin: normal color, warm/dry (HARMAN VYAS) Progress/Results/Core Measures Results/Orders Lab Results Laboratory Tests Test 05/03/23 14:25 05/03/23 14:40 Range/Units Urine Color YELLOW Urine Clarity CLEAR Urine pH 5.5 5-9 Urine Specific [place] >=1.030 1.016-1.022 Urine Protein NEGATIVE NEGATIVE Urine Glucose (UA) NEGATIVE NEGATIVE Urine Ketones 1+ H NEGATIVE Urine Nitrite NEGATIVE NEGATIVE Urine Bilirubin 1+ H NEGATIVE Urine Urobilinogen 0.2 < = 1.0 MG/DL Urine Leukocyte Esterase TRACE H NEGATIVE Urine RBC (Auto) NEGATIVE NEGATIVE Urine RBC NONE /HPF Urine WBC 0-2 /HPF Urine Squamous Epithelial Cells 5-10 /HPF Urine Crystals NONE /LPF Urine Bacteria FEW H /HPF Urine Casts NONE /LPF Urine Mucus NEGATIVE /LPF Urine Culture Indicated NO Urine Test NEGATIVE NEGATIVE White Blood Count 13.7 H 4.3-11.0 10^3/uL Red Blood Count 5.03 3.80-5.11 10^6/uL Hemoglobin 14.7 11.5-16.0 g/dL Hematocrit 46 35-52 % Mean Corpuscular Volume 91 80-99 fL Mean Corpuscular Hemoglobin 29 25-34 pg Mean Corpuscular Hemoglobin Concent 32 32-36 g/dL Red Cell Distribution Width 12.6 10.0-14.5 % Platelet Count 298 130-400 10^3/uL Mean Platelet Volume 10.5 9.0-12.2 fL Immature Granulocyte % (Auto) 0 % Neutrophils (%) (Auto) 79 H 42-75 % Lymphocytes (%) (Auto) 17 12-44 % Monocytes (%) (Auto) 3 0-12 % Eosinophils (%) (Auto) 0 0-10 % Basophils (%) (Auto) 0 0-10 % Neutrophils # (Auto) 10.9 H 1.8-7.8 10^3/uL Lymphocytes # (Auto) 2.3 1.0-4.0 10^3/uL Monocytes # (Auto) 0.4 0.0-1.0 10^3/uL Eosinophils # (Auto) 0.0 0.0-0.3 10^3/uL Basophils # (Auto) 0.0 0.0-0.1 10^3/uL Immature Granulocyte # (Auto) 0.0 0.0-0.1 10^3/uL Percent Immature Platelet Fraction 4.3 0.0-7.6 % Sodium Level 139 135-145 MMOL/L Potassium Level 4.0 3.6-5.0 MMOL/L Chloride Level 109 H 98-107 MMOL/L Carbon Dioxide Level 18 L 21-32 MMOL/L Anion Gap 12 5-14 MMOL/L Blood Urea Nitrogen 15 7-18 MG/DL Creatinine 0.75 0.60-1.30 MG/DL Estimat Glomerular Filtration Rate 108 BUN/Creatinine Ratio 20 Glucose Level 108 H 70-105 MG/DL Calcium Level 9.2 8.5-10.1 MG/DL Corrected Calcium 9.0 8.5-10.1 MG/DL Total Bilirubin 0.4 0.1-1.0 MG/DL Aspartate Amino Transf (AST/SGOT) 17 5-34 U/L Alanine Aminotransferase (ALT/SGPT) 19 0-55 U/L Alkaline Phosphatase 43 40-136 U/L C-Reactive Protein High Sensitivity 1.75 H 0.00-0.50 MG/DL Total Protein 7.9 6.4-8.2 GM/DL Albumin 4.3 3.2-4.5 GM/DL Lipase 25 8-78 U/L (CHIKI CHAIREZ MD) Medications Given in ED Current Medications Medications Dose Ordered Sig/Divya Route Start Time Stop Time Status Last Admin Dose Admin Iohexol 100 ml ONCE ONCE IV 05/03/23 14:30 05/03/23 14:31 DC 05/03/23 14:31 100 ML Ondansetron HCl 4 mg ONCE ONCE IVP 05/03/23 14:15 05/03/23 14:16 DC 05/03/23 14:44 4 MG Sodium Chloride 100 ml ONCE ONCE IV 05/03/23 14:30 05/03/23 14:31 DC 05/03/23 14:31 80 ML (CHIKI CHAIREZ MD) Vital Signs/I&O 05/03/23 05/03/23 14:04 17:14 Temp 36.8 36.4 Pulse 88 83 Resp 14 14 B/P (MAP) 107/77 (87) 122/87 Pulse Ox 93 98 O2 Delivery Room Air Room Air (CHIKI CHAIREZ MD) Blood Pressure Mean: 87 Departure Communication (PCP) Differential diagnosis appendicitis, ovarian torsion, gastritis, GERD, gastroenteritis, colitis. Patient in moderate pain on arrival. Symptoms s tarted today. History of cholecystectomy. CBC, CMP, lipase, urinalysis CT abdomen pelvis was ordered. She did have right lower quadrant tenderness on palpation. She states pain started in her upper abdomen described as sharp and has migrated to right lower quadrant. She was started on liter of fluid and was given Zofran and fentanyl with improvement of pain. CBC showed a white blood count of 13. Chemistry was grossly unremarkable. Normal lipase. Urinalysis without strong evidence of infection. Negative for . CT abdomen pelvis did not note any acute abnormality. Due to location of pain rule out ovarian torsion ultrasound was ordered which did not show any evidence of adnexal mass, ovarian torsion, ovarian cyst. She did receive a second dose of fentanyl with improvement of pain. Other etiologies would be GERD, indigestion, gastroenteritis, . At this time recommend continue with conservative treatment. Recommend bowel rest for the next few days clear liquids. She does have Zofran at home. If any worsening symptoms such as pain fever intractable vomiting to return back to ED. Follow-up your PCP in 2 to 3 days for reevaluation. No evidence of surgical abdomen at this time. Vital signs stable and medically stable for discharge (HARMAN VYAS) Impression Primary Impression: Abdominal pain Disposition: HOME, SELF-CARE Condition: Stable Departure-Patient Inst. Decision time for Depature: 17:11 (HARMAN VYAS) Referrals: KAVITA ESPINOZA APRN (PCP/Family) Primary Care Physician Patient Instructions: Abdominal Pain, Adult ED Add. Discharge Instructions: Continue monitoring symptoms. Pain medication as needed. Avoiding fatty foods spicy foods. If starting develop belching burning sensation in the chest recommend Tums, Mylanta or Protonix to help with acid reduction. If any worsening pain fever uncontrollable vomiting to return back to ED All discharge instructions reviewed with patient and/or family. Voiced understanding. Scripts Hydrocodone/Acetaminophen (Hydrocodone-Acetamin 5-325 mg) 5 Mg-325 Mg Tablet 1 TAB PO Q4H PRN for PAIN-MODERATE (5-7), #6 TAB Prov: HARMAN VYAS 05/03/23 ATTENDING PHYSICIAN NOTE: I was physically present as attending physician in the emergency department during the care of this patient, but I was not directly involved in the decision making or delivery of care for this patient. (CHIKI CHAIREZ MD) HARMAN VYAS May 03, 2023 14:24 CHIKI CHAIREZ MD May 03, 2023 18:31
[2023-05-03] MEDS ORDERED: fentaNYL INJECTION 100 MCG/2 ML VIAL IVP STA ×2 (14:25→17:01)
[2023-05-03] MEDS ORDERED: IOHEXOL 350 MG/ML 100 ML (OMNIPAQUE 350) VIAL IV ONE (14:30)
[2023-05-03] MEDS ORDERED: NS 100 ML (IVPB) BAG IV ONE (14:30)
[2023-05-03] MEDS ORDERED: HOLD METFORMIN - RECEIVED CONTRAST 20 ML VIAL IV SCH (14:30)
[2023-05-03 14:53] LABS: BASOPHILS % (AUTO) 0 % (0-10); MEAN CORPUSCULAR HEMOGLOBIN 29 pg (25-34); MEAN CORPUSCULAR HGB CONC 32 g/dL (32-36)
[2023-05-03 14:55] LABS: EOSINOPHILS % (AUTO) 0 % (0-10); HEMATOCRIT 46 % (35-52); HEMOGLOBIN 14.7 g/dL (11.5-16.0); LYMPHOCYTES # (AUTO) 2.3 10^3/uL (1.0-4.0); LYMPHOCYTES % (AUTO) 17 % (12-44); MEAN CORPUSCULAR VOLUME 91 fL (80-99); MEAN PLATELET VOLUME 10.5 fL (9.0-12.2); MONOCYTES # (AUTO) 0.4 10^3/uL (0.0-1.0); MONOCYTES % (AUTO) 3 % (0-12); NEUTROPHILS # (AUTO) 10.9 10^3/uL (1.8-7.8); NEUTROPHILS % (AUTO) 79 % (42-75); PLATELET COUNT 298 10^3/uL (130-400); WHITE BLOOD COUNT 13.7 10^3/uL (4.3-11.0)
[2023-05-03 14:57] LABS: CLARITY,URINE CLEAR; COLOR,URINE YELLOW; PH,URINE 5.5 (5-9)
[2023-05-03 14:58] LABS: BILIRUBIN,URINE 1+ (NEGATIVE); GLUCOSE, URINE (UA) NEGATIVE (NEGATIVE); KETONES,URINE 1+ (NEGATIVE); LEUKOCYTE ESTERASE ,URINE TRACE (NEGATIVE); NITRITE,URINE NEGATIVE (NEGATIVE); PROTEIN,URINE NEGATIVE (NEGATIVE)
[2023-05-03 14:59] LABS: BACTERIA,URINE FEW /HPF; WBC,URINE 0-2 /HPF
[2023-05-03 15:00] LABS: ALBUMIN 4.3 GM/DL (3.2-4.5)
--- NOTE | 2023-05-03 15:00 | Diagnostic Imaging Report ---
EXAMINATION: CT abdomen and pelvis with intravenous contrast. TECHNIQUE: Multiple contiguous axial images were obtained through the abdomen and pelvis after the uneventful administration of intravenous contrast. All CT scans use one or more of the following dose optimizing techniques: automated exposure control, MA and/or KvP adjustment based on patient size and exam type or iterative reconstruction. HISTORY: Right lower quadrant abdominal pain. COMPARISON: 07/17/2022 FINDINGS: Lung bases: The lung bases are clear. Solid organs: The liver is normal without focal lesion. The gallbladder is surgically absent. There is no biliary ductal dilation. Pancreas is normal. Spleen is normal. Adrenal glands are normal. The kidneys are normal without hydronephrosis. Bowel: The stomach and small bowel are normal without obstruction. The colon is normal. The appendix is normal. Peritoneum: There is no intraperitoneal free fluid or free air. No suspicious lymphadenopathy. Vasculature: Normal without aneurysm. Musculoskeletal: No suspicious osseous lesion or compression fracture. Pelvis: The uterus and adnexa are normal. The urinary bladder is normal. IMPRESSION: 1. No acute abnormality in the abdomen or pelvis. Dictated by: Dictated on workstation # [id number]
[2023-05-03 15:01] LABS: CALCIUM 9.2 MG/DL (8.5-10.1)
[2023-05-03 15:02] LABS: TOTAL PROTEIN 7.9 GM/DL (6.4-8.2)
[2023-05-03 15:04] LABS: BILIRUBIN,TOTAL 0.4 MG/DL (0.1-1.0)
[2023-05-03 15:06] LABS: CREATININE SERUM 0.75 MG/DL (0.60-1.30)
--- NOTE | 2023-05-03 16:49 | Diagnostic Imaging Report ---
PROCEDURE: US Non-ob pelvis comp/trans. TECHNIQUE: Multiple realtime grayscale images were obtained of the pelvis in various projections endovaginally. Transabdominal imaging was also performed. INDICATION: Right lower quadrant pain. COMPARISON: CT abdomen and pelvis from same day. FINDINGS: The uterus measures 8.1 x 3.7 x 5.1 cm. The myometrium is normal in echogenicity without discrete mass. The endometrium measures up to 1.0 cm where visualized, and is normal in echogenicity. The right ovary measures 2.7 x 1.5 x 2.1 cm. Left adnexa is imaged but the left ovary is not seen due to surrounding bowel gas. The right ovary is normal in appearance with blood flow present. No suspicious adnexal mass or fluid collection. Trace free simple fluid within the pelvis is considered physiologic. IMPRESSION: 1. Normal right ovary without torsion. 2. Left ovary is not able to be visualized but there is no concerning left adnexal mass. Dictated by: Dictated on workstation # [id number]
[2023-05-03] MEDS ORDERED: ACHD5005 PO (17:12)
[2023-05-03 17:14] VITALS: BP 122/87
== END 2023-05-03 17:21 | disposition home or self-care (01) ==
LOC: EDUNIT# 13:10 → ER 13:12
DX: R10.31 Right lower quadrant pain (principal); R10.13 Epigastric pain; E66.9 Obesity, unspecified; Z90.49 Acquired absence of other specified parts of digestive tract; Z68.37 Body mass index [BMI] 37.0-37.9, adult
CPT/HCPCS: 36415; 74177; 76830; 76856; 80053; 81000; 83690; 84703; 85025; 86141